=== PATIENT | female | born 1945 | race Caucasian/White ===

== ENCOUNTER 2020-01-22 09:02 | Outpatient (CLI) | payer MEDICARE, SELFPAY ==
--- NOTE | ~2020-01-22 | MM_ITS ---
EXAMINATION: MM screening claudio BI w thai HISTORY: Screening TECHNIQUE: Craniocaudal and mediolateral oblique 3-D tomosynthesis images were obtained and synthetic 2-D images were generated. CAD analysis was submitted and interpreted. COMPARISON: Comparison to multiple prior studies sequentially, with oldest reviewed study dated 11/10. BREAST PARENCHYMAL COMPOSITION: There are scattered areas of fibroglandular density. FINDINGS: There is no evidence of suspicious mass, calcification, or architectural distortion to sugg est malignancy in either breast. There has been no suspicious interval change. IMPRESSION: 1. No mammographic evidence of malignancy. 2. Recommend routine screening mammography in one year. BI-RADS Category 1: Negative Reviewed, dictated and finalized at location A.
== END 2020-01-22 09:03 | disposition home or self-care (01) ==
LOC: ANHIMG 09:05
PROVIDERS: PCP Internal Medicine; Visit Provider Internal Medicine Cardiovascular Disease
DX: Z12.31 Encounter for screening mammogram for malignant neoplasm of breast (principal)
CPT/HCPCS: 77063; 77067

== ENCOUNTER 2020-01-23 08:07 | Outpatient (CLI) | payer MEDICARE, SELFPAY ==
--- NOTE | ~2020-01-23 | US_ITS ---
EXAMINATION: US art doppler w press LE BI DATE: 01/23/2020 08:51 INDICATION: Bilateral claudication. TECHNIQUE: Segmental pressures and plethysmographic and Doppler waveforms of the brachial and lower e xtremity arteries were obtained. COMPARISON: CTA abdomen and pelvis 09/03/2018 FINDINGS: Right and left brachial artery pressures of 133 mm Hg and 143 mm Hg, respectively, are concordant (no rmal difference <= 30 mmHg). The right high-thigh pressure index is 1.17 (normal > 1.2). The right ankle-brachial index (WEN) is 0 .99 (normal >= 0.9-1.0). The right great toe-brachial index (TBI) is 0.70 (normal >= 0.65). The right lower extremity segmental pressure gradients are normal (normal gradients <= 20-30 mmHg between isela cent levels on the same leg or the same levels on the two legs). Arterial Doppler waveforms are bipha sic from common femoral artery to the ankle. The left high-thigh pressure index is 1.10. The left WEN is 1.03. The left TBI is 0.74. The left lowe r extremity segmental pressure gradients are normal. Arterial Doppler waveforms are biphasic from com mon femoral artery to the ankle. IMPRESSION: 1. No significant arterial occlusive disease. Reviewed, dictated and finalized at location A.
== END 2020-01-23 08:08 | disposition home or self-care (01) ==
PROVIDERS: PCP Internal Medicine; Visit Provider Podiatrist Foot & Ankle Surgery
DX: M79.672 Pain in left foot (principal); M79.671 Pain in right foot; I73.9 Peripheral vascular disease, unspecified
CPT/HCPCS: 93923

== ENCOUNTER 2020-03-23 00:28 | Outpatient (CLI) | payer MEDICARE, SELFPAY ==
[2020-03-23 20:04] LABS: SARS-CoV-2 RNA PCR Negative
== END 2020-03-23 00:29 | disposition home or self-care (01) ==
LOC: ANHCOVIDDT 00:28
PROVIDERS: PCP Internal Medicine; Visit Provider Internal Medicine Gastroenterology
DX: Z01.812 Encounter for preprocedural laboratory examination (principal); Z20.828 Contact with and (suspected) exposure to other viral communicable diseases
CPT/HCPCS: 87635; C9803; U0003

== ENCOUNTER 2020-03-25 01:00 | Day surgery (SDC) | payer MEDICARE, SELFPAY ==
[2020-03-17 14:46] VITALS: BMI 19.2
[2020-03-25 08:54] VITALS: BP 165/100; PULSE 73; RESP 18; TEMP 36.3; O2SAT 100; BMI 19.8
--- NOTE | 2020-03-25 09:09 | PM.HPGS ---
History of Present Illness History of Present Illness Consent: Risks, benefits, and alternatives have been discussed and questions answered. Patient agrees to proceed with procedure. Chief complaint: Neoplasm Screening Narrative: Clau Lebron is a 74 year old W female referred for screening colonoscopy. Patient states she had a colonoscopy approximately 10 years ago which was normal. No known family history of colon polyps or colon cancer. History was somewhat difficult patient is deaf. She states that many years ago she had a stent placed mesenteric vessel to reduce her blood pressure. Patient is on Eliquis secondary to history of a CVA. She did stop this several days ago. [facility] Past Medical History Medical History Anxiety Depression Hepatitis Stroke Surgical History Surgical History History of angioplasty Social History Social History Smoking packs per day: 0.25 Smoking cigarettes per day: 5.0 Years smoked: 20 Smoking pack-years: 5.00 Smoking status: Light tobacco smoker Tobacco type: cigarettes Second hand tobacco smoke exposure: No Smoking end date: 07/02/1968 Alcohol intake: current Drinks per week: 2 Substance use: never Substance use type: does not use Living arrangements: alone Spiritual care concerns: No Meds Home Medications and Allergies Home Medications Medication Instructions Recorded Confirmed Type amlodipine 5 mg PO DAILY 03/15/20 03/15/20 History apixaban [Eliquis] 5 mg PO BID 03/15/20 03/17/20 History atorvastatin 10 mg PO DAILY 03/15/20 03/15/20 History captopril 100 mg PO BID 03/15/20 03/17/20 History metoprolol succinate 100 mg PO DAILY 03/15/20 03/15/20 History Allergies Allergy/AdvReac Type Severity Reaction Status Date / Time No Known Allergies Allergy Unknown Verified 03/25/20 08:53 Vital Signs Vital Signs - 24 hr 03/25/20 08:54 Temperature 36.3 C L Pulse Rate 73 Respiratory Rate 18 Blood Pressure 165/100 H Pulse Oximetry 100 Exam Const: Orientation/consciousness: patient oriented x3 Resp: Auscultation: clear to auscultation bilaterally Cardio: Rate: regular rate Rhythm: regular rhythm Heart sounds: no murmurs GI: GI Palp: Yes Soft to palpation, No Tenderness to palpation present (GI), Yes No hepatosplenomegaly present and No Palpable mass present Auscultation: normal bowel sounds Neuro: General: patient oriented x3 and no focal motor deficits Extrem: General: no pedal edema Assessment and Plan Additional Plan Screening colonoscopy in average risk patient
[2020-03-25] MEDS: LACTATED RINGERS 1,000 ML 150 ML IV CONT (09:25)
--- NOTE | 2020-03-25 09:26 | SUR.PREOP ---
blood pressure 165/100. Dr. Alvarez aware. No new orders.
--- NOTE | 2020-03-25 09:53 | WPDANESEPPF ---
Anes - Initial Pre Proc Eval Procedure: Operation Date: 03/25/20 09:30 Proposed Procedures p Screening Colonoscopy - Robert Villafana MD Date/Time: 03/25/20 09:53 Surgeon: Robert Villafana MD Pre Op Diagnosis: Neoplasm Screening Patient Data Age: 74 Gender: F Height: 5 ft 4 in Weight: 52.5 kg Last Vital Signs Temp 97.4 F L 03/25/20 08:54 Pulse 73 03/25/20 08:54 Resp 18 03/25/20 08:54 BP 165/100 H 03/25/20 08:54 Pulse Ox 100 03/25/20 08:54 Allergies Allergy/AdvReac Type Severity Reaction Status Date / Time No Known Allergies Allergy Unknown Verified 03/25/20 08:53 Home Medications Medication Instructions Recorded Confirmed Type amlodipine 5 mg PO DAILY 03/15/20 03/15/20 History apixaban [Eliquis] 5 mg PO BID 03/15/20 03/17/20 History atorvastatin 10 mg PO DAILY 03/15/20 03/15/20 History captopril 100 mg PO BID 03/15/20 03/17/20 History metoprolol succinate 100 mg PO DAILY 03/15/20 03/15/20 History Patient hx anesthesia problems: none Family hx anesthesia problems: none PMFSH Past Medical History Medical History Anxiety Depression Hepatitis Stroke Surgical History Surgical History History of angioplasty Social History Social History Smoking packs per day: 0.25 Smoking cigarettes per day: 5.0 Years smoked: 20 Smoking pack-years: 5.00 Smoking status: Light tobacco smoker Tobacco type: cigarettes Second hand tobacco smoke exposure: No Smoking end date: 07/02/1968 Alcohol intake: current Drinks per week: 2 Substance use: never Substance use type: does not use Living arrangements: alone Spiritual care concerns: No Anes - Eval Final PreProcedure Day of Procedure 03/25/20 09:53 Patient weight: normal Heart: irregular rhythm Lungs: clear to auscultation Airway: Mallampati scale class II Neurological: alert and oriented Last oral intake: >/= 8 hours ASA classification: III Emergent: no Anesthetic plan: proceed Anesthesia type and monitoring: general GIVS and standard monitoring Informed Consent: The patient's anesthetic plan and its attendant risks and benefits were discussed with the patient/family/POA. Questions were solicited and answers provided to the satisfaction of the patient/family/POA.
[2020-03-25 10:15] VITALS: BP 128/86; PULSE 117; RESP 20; O2SAT 97
[2020-03-25 10:25] VITALS: BP 110/69; PULSE 121; RESP 24; O2SAT 98
[2020-03-25 10:35] VITALS: BP 119/72; PULSE 112; RESP 26; O2SAT 99
== END 2020-03-25 11:03 | disposition home or self-care (01) ==
PROVIDERS: PCP Internal Medicine; Visit Provider Internal Medicine Gastroenterology
PROC: 0DJD8ZZ Inspection of Lower Intestinal Tract, Via Natural or Artificial Opening Endoscopic (ICD-10-PCS; CPT 45378; principal; 2020-03-25 09:30)
DX: Z12.11 Encounter for screening for malignant neoplasm of colon (principal); K57.30 Diverticulosis of large intestine without perforation or abscess without bleeding; K64.8 Other hemorrhoids; K64.4 Residual hemorrhoidal skin tags; F41.8 Other specified anxiety disorders; Z86.19 Personal history of other infectious and parasitic diseases; Z86.73 Personal history of transient ischemic attack (TIA), and cerebral infarction without residual deficits; Z87.891 Personal history of nicotine dependence; Z79.01 Long term (current) use of anticoagulants
CPT/HCPCS: G0121; J2704; J7120

== ENCOUNTER 2020-07-15 10:07 | Emergency (ER) | payer MEDICARE, SELFPAY ==
[2020-07-15 10:20] VITALS: BP 145/88; PULSE 120; RESP 18; TEMP 36.6; O2SAT 99
--- NOTE | 2020-07-15 10:36 | ED.ANIMALBIT ---
HPI - Animal Bite General Chief Complaint: Animal Bite Stated Complaint: Dog Bite Time Seen by Provider: 07/15/20 10:30 Source: patient Mode of arrival: ambulatory Limitations: no limitations History of Present Illness HPI narrative: Clau Lebron is a 75 yo female with a PMH of a fib, HTN, high cholesterol, chronic anticoagulation, comes to [facility] with a small dog bite to the left lateral wrist that occurred Sunday while trying to give her dog pill. She said her dog didn't mean to bite her but she had her arm holding the dog while trying to force the pill. Started to get red the next day even after being wash, she has full range of motion and pain only when she tries to flex wrist, at which point it is 3 out of 10 Patient is extremely hard of hearing Related Data Home Medications Medication Instructions Recorded Confirmed Eliquis 5 mg PO BID 03/15/20 07/15/20 amlodipine 5 mg PO DAILY 03/15/20 07/15/20 atorvastatin 10 mg PO DAILY 03/15/20 07/15/20 captopril 100 mg PO BID 03/15/20 07/15/20 metoprolol succinate 100 mg PO DAILY 03/15/20 07/15/20 Allergies Allergy/AdvReac Type Severity Reaction Status Date / Time No Known Allergies Allergy Unknown Verified 07/15/20 10:32 Review of Systems Review of Systems: Narrative: CONSTITUTIONAL: Denies fever, chills, sweats. EYES: Denies visual changes, redness, discharge. ENT: Denies rhinorrhea, congestion, sore throat, otalgia. CARDIOVASCULAR: Denies chest pain, palpitations, edema. RESPIRATORY: Denies dyspnea, wheezing, cough GASTROINTESTINAL: Denies abdominal pain, nausea, vomiting, diarrhea. GENITOURINARY: Denies dysuria, hematuria, abnormal discharge SKIN: Denies rash or itching. Bite to right wrist NEUROLOGIC: Denies numbness, or focal weakness. PSYCHIATRIC: Denies anxiety or depression. [facility] Past Medical History Medical History (Updated 07/15/20 @ 10:52 by Aye Bermudez CNP) Anxiety Depression Hepatitis Stroke Surgical History Surgical History History of angioplasty Family History Family History (Updated 07/15/20 @ 10:47 by Aye Bermudez CNP) Other No acute medical problems Social History Social History (Updated 07/15/20 @ 10:46 by Aye Bermduez CNP) Smoking packs per day: 0.25 Smoking cigarettes per day: 5.0 Years smoked: 20 Smoking pack-years: 5.00 Smoking status: Former smoker Tobacco type: cigarettes Second hand tobacco smoke exposure: No Smoking end date: 07/02/1968 Alcohol intake: current Drinks per week: 2 Substance use: never Substance use type: does not use Gender identity (if verbalized by the patient): Female Spiritual care concerns: No Comments At time of signature, I agree with nursing past medical, surgical, social and family history. There is no relevant family history pertinent to the presenting complaint. Exam Narrative: Exam Narrative: GENERAL: This is a well-nourished, well-developed patient, in mild distress. HEAD: normocephalic, atraumatic. EYES: PERRL. Sclera clear/white. Vision is grossly intact. EARS: External ears normal. Hearing grossly intact. NOSE: External nose normal without nasal discharge, nares without redness, no rhinorrhea. THROAT: Mucous membranes moist, NECK: Neck supple, CARDIOVASCULAR: Regularly irregular rate and rhythm without murmurs, gallops, or rubs. RESPIRATORY: Clear to auscultation. Breath sounds equal bilaterally. No wheezes, rales, or rhonchi. GASTROINTESTINAL: Abdomen soft, SKIN: warm, intact with no suspicious lesions or rash, small laceration, scab, redness on lateral wrist, good range of motion good finger opposition pain with flex his wrist upward NEURO: awake, alert, and oriented to person, place and time. There were no obvious focal neurologic abnormalities. Steady gait EXTREMITIES: Normal range of motion. BACK: Nontender without deformity Course Course Emergency Course: Danisha
== END 2020-07-15 10:54 | disposition home or self-care (01) ==
PROVIDERS: Emergency Provider Nurse Practitioner
DX: S61.511A Laceration without foreign body of right wrist, initial encounter (principal); W54.0XXA Bitten by dog, initial encounter; Z86.73 Personal history of transient ischemic attack (TIA), and cerebral infarction without residual deficits; I48.91 Unspecified atrial fibrillation; I10 Essential (primary) hypertension; E78.00 Pure hypercholesterolemia, unspecified; Z79.01 Long term (current) use of anticoagulants
CPT/HCPCS: 99213; G0463

== ENCOUNTER 2020-11-23 07:00 | Emergency (ER) | payer MEDICARE, SELFPAY ==
--- NOTE | ~2020-11-23 | CT_ITS ---
EXAMINATION: CT brain wo con INDICATION: Head injury COMPARISON: 02/01/2015 TECHNIQUE: Standard unenhanced head CT. The dose-length product (DLP) was 529.67 mGy-cm. The mA was a djusted according to patient size. Iterative reconstruction technique was employed. FINDINGS: There is a large right-sided scalp hematoma. A 7 mm punctate hyperdensity is seen in the ri ght frontal lobe on image 37. A 3 mm hyperdensity of the right frontal lobe as seen on image 36. Ther e are no extra-axial fluid collections. No evidence of mass lesion. No evidence of acute infarction. An area of prior infarction is noted in the left frontal lobe. There is mild periventricular and subc ortical hypodensity probably related to small vessel ischemic disease. There is mild prominence of th e sulci and ventricles related to cerebral atrophy. Intracranial calcified cerebral atherosclerosis i s noted. There are no extra-axial collections. There is no mass effect or midline shift. Changes in t he globes are likely from ocular lens surgery. There is mild mucosal thickening of the paranasal sin uses. IMPRESSION: 1. Intraparenchymal contusions of the right frontal lobe. 2. Age related findings. These findings were discussed with Dr. Carolina Way MD in the Emergency Department at 0818 hours on 11/23/2020. Reviewed, dictated and finalized at location A. IMPRESSION: 1. Intraparenchymal contusions of the right frontal lobe. 2. Age related findings. These findings were discussed with Dr. Carolina Way MD in the Emergency Depar tment at 0818 hours on 11/23/2020.
--- NOTE | ~2020-11-23 | XR_ITS ---
EXAMINATION: XR chest 1V portable DATE: 11/23/2020 09:27 INDICATION: Left chest pain. Fall. TECHNIQUE: A single frontal view of the chest was obtained. COMPARISON: Chest single view 05/17/2016 FINDINGS: There are airspace opacities in right mid and lower lung zones and left lower lung zone. No pleural effusion or pneumothorax. Cardiomegaly is noted. IMPRESSION: 1. Worsened airspace opacities in right mid and lower lung zones and left lower lung zone, consistent with atelectasis versus pneumonia. 2. Cardiomegaly. Reviewed, dictated and finalized at location B.
--- NOTE | ~2020-11-23 | XR_ITS ---
EXAMINATION: XR shoulder LT min 2V INDICATION: Left shoulder pain TECHNIQUE: Four views of the left shoulder are submitted. COMPARISON: 08/03/2015 FINDINGS: Normal alignment. No fracture. There is mild osteoarthritis of the glenohumeral and acromio clavicular joints. Soft tissues are unremarkable. IMPRESSION: 1. No acute osseous abnormality. Reviewed, dictated and finalized at location A.
--- NOTE | ~2020-11-23 | XR_ITS ---
EXAMINATION: XR hand LT min 3V INDICATION: Left hand pain TECHNIQUE: Three views of the left hand are obtained COMPARISON: None available FINDINGS: There is no fracture, dislocation, or subluxation. 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 The soft tissues are unremark able. 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 IMPRESSION: 1. No acute osseous abnormality. Reviewed, dictated and finalized at location A.
--- NOTE | ~2020-11-23 | CT_ITS ---
EXAMINATION: CT cervical spine wo con DATE: 11/23/2020 08:01 INDICATION: Head injury TECHNIQUE: Computed tomography (CT) of the cervical spine was performed without intravenous contrast. The dose-length product (DLP) was 124.83 mGy-cm. Automated exposure control and iterative reconstruc tion technique were employed. COMPARISON: 07/29/2018 FINDINGS: There is an acute fracture involving the anterior aspect of the left C2 foramen transversar ium. A fracture of the left C7 superior articular facet is also noted. There are 2 mm of anterolisthe sis of C2 on C3 and 2 mm of retrolisthesis of C4 on C5. There is severe loss of intervertebral disc s pace height at C3-4, C4-5, and C5-6. The vertebral body heights are maintained. The prevertebral soft tissues are normal. The odontoid is intact. IMPRESSION: 1. Acute fractures of the left C2 foramen transversarium and left C7 superior articular facet. These findings were discussed with Dr. Carolina Way MD in the Emergency Department at 0818 hours on 11/23/2020. Reviewed, dictated and finalized at location A. IMPRESSION: 1. Acute fractures of the left C2 foramen transversarium and left C7 superior a rticular facet. These findings were discussed with Dr. Carolina Way MD in the Emergency Depar tment at 0818 hours on 11/23/2020.
[2020-11-23 07:00] VITALS: BP 119/117; PULSE 114; RESP 15; TEMP 36.8; O2SAT 99
[2020-11-23 07:19] VITALS: BP 177/107
--- NOTE | 2020-11-23 07:44 | ED.GENADULT ---
HPI - General Adult General Chief complaint: Extremity Injury, Upper Stated complaint: fall Time Seen by Provider: 11/23/20 07:06 Source: patient History of Present Illness HPI narrative: Patient is a 75 y/o female complaining of falling down some steps after she tried to walk downstairs without turning on the lights. This happened approximately 2 hours ago. She complains of left neck pain, shoulder pain and hand pain. She also has some headache and left upper chest pain. She denies any back pain or abdominal pain. She has no LOC. She was able to get up without assistance. Related Data Home Medications Medication Instructions Recorded Confirmed Eliquis 5 mg PO BID 03/15/20 07/15/20 amlodipine 5 mg PO DAILY 03/15/20 07/15/20 atorvastatin 10 mg PO DAILY 03/15/20 07/15/20 captopril 100 mg PO BID 03/15/20 07/15/20 metoprolol succinate 100 mg PO DAILY 03/15/20 07/15/20 Allergies Allergy/AdvReac Type Severity Reaction Status Date / Time No Known Allergies Allergy Unknown Verified 07/15/20 10:32 Review of Systems Constitutional: Constitutional: Denies chills, Denies fever(s), Reports headache(s) and Denies weakness Eyes: Eyes: Denies blurry vision ENT: Reports headache(s) and Denies neck pain Cardiovascular: Cardiovascular: Reports chest pain and Denies dyspnea Respiratory: Respiratory: Denies cough and Denies dyspnea Gastrointestinal: Gastrointestinal: Denies abdominal pain, Denies diarrhea, Denies nausea and Denies vomiting Genitourinary: Genitourinary: Denies hematuria and Denies dysuria Musculoskeletal: Musculoskeletal: Denies back pain, Reports arthralgias (left shoulder pain), Reports neck pain and Reports other (left hand pain) Neurologic: Reports headache(s) and Reports weakness PMFSH Past Medical History Medical History (Updated 11/23/20 @ 09:[address] MD) Anxiety Depression Hepatitis Stroke Surgical History Surgical History History of angioplasty Family History Family History Other No acute medical problems Social History Social History Smoking packs per day: 0.25 Smoking cigarettes per day: 5.0 Years smoked: 20 Smoking pack-years: 5.00 Smoking status: Former smoker Tobacco type: cigarettes Second hand tobacco smoke exposure: No Smoking end date: 07/02/1968 Alcohol intake: current Drinks per week: 2 Substance use: never Substance use type: does not use Gender identity (if verbalized by the patient): Female Spiritual care concerns: No Exam Const: General: no acute distress and well developed Orientation/consciousness: oriented to person, oriented to place, oriented to time and patient oriented x3 HENMT: Head: normocephalic Ears: external ears normal General nose exam: Normal external nose present Eyes: General: appearance normal, both eyes and all related structures Conjunctivae: conjunctivae normal Neck: Neck: normal visual inspection and full ROM Chest: Chest palpation & inspection: normal inspection of the chest and no tenderness Resp: Effort & Inspection: normal respiratory effort Auscultation: clear to auscultation bilaterally Cardio: Rate: tachycardic Rhythm: abnormal rhythm irregularly irregular GI: GI Palp: No abdominal tenderness and Yes Soft to palpation Skin: General skin exam: normal color and turgor normal Neuro: General: oriented to person, oriented to place, oriented to time, patient oriented x3 and other (GCS 15) Cranial nerves: Yes hard of hearing Cognition (Neuro): normal cognition Speech: normal speech Motor exam (neuro): 5/5 motor strength present throughout Sensory Exam: normal sensation Extrem: General: normal to inspection, full ROM and no pedal edema Psych: Appearance: grossly normal Mental Status: mental status grossly normal Affect: normal aff
[2020-11-23 08:27] LABS: Basophils Absolute Auto 0.1 K/mm3 (0.0-0.1); Basophils Percent Auto 0.4 % (0.2-1.2); Eosinophils Percent Auto 0.1 % (0-4.4); Hematocrit 48.6 % (37.0-47.0); Hemoglobin 16.4 g/dL (12.0-15.0); Immature Granulocyte Percent A 0.6 % (0-0.5); Lymphocytes Absolute Auto 0.85 K/mm3 (0.9-3.2); Lymphocytes Percent Auto 5.1 % (18.3-44.2); Mean Corpuscular HGB Conc 33.7 g/dl (32-36); Mean Corpuscular Hemoglobin 29.6 pg (26-34); Mean Corpuscular Volume 87.7 fl (80-100); Mean Platelet Volume 10.7 fl (7.4-10.4); Monocytes Absolute Auto 0.7 K/mm3 (0.1-0.6); Monocytes Percent Auto 3.9 % (2.6-8.5); Neutrophils Absolute Auto 15.1 K/mm3 (1.3-6.7); Neutrophils Percent Auto 89.9 % (45.5-73.1); Platelet Count Result 233 k/mm3 (150-375); Red Blood Count 5.54 M/mm3 (4.2-5.4); Red Cell Distribution Width 13.5 % (11.5-14.5); White Blood Count 16.8 K/mm3 (4.5-10.0)
--- NOTE | 2020-11-23 08:30 | PC.NURSE ---
Asked Dr. Way about pain medication for patient. Orders received to administer 2mg of morphine IVP.
[2020-11-23] MEDS: MORPHINE SULFATE (*CRX) 2 MG/ML INJ IV PUSH (08:36)
[2020-11-23 08:39] LABS: INR 1.4; Prothrombin Time 17.4 Seconds (11.1-14.7)
[2020-11-23 08:40] LABS: Partial Thromboplastin Time 36.5 SECONDS (22.3-36.8)
[2020-11-23 08:42] LABS: Anion Gap 10 mmol/L (8-16); Blood Urea Nitrogen 27 mg/dL (7-17); Carbon Dioxide 25 mmol/L (22-30); Chloride 105 mmol/L (98-107); Estimated CRCL calculation 28 ml/min; Estimated Glomerular Filt Rate 44; Glucose 141 mg/dL (65-105); Potassium 4.5 mmol/L (3.4-5.0); Sodium 140 mmol/L (137-145)
--- NOTE | 2020-11-23 08:42 | ECG_ITS ---
Measurements Intervals [place] Rate: 134 P: GA: 0 QRS: 129 QRSD: 118 T: -28 QT: 306 QTc: 458 Interpretive Statements ATRIAL FIBRILLATION WITH RAPID VENTRICULAR RESPONSE RIGHT AXIS DEVIATION RIGHT BUNDLE BRANCH BLOCK CONSIDER HIGH LATERAL INFARCT, AGE INDETERMINATE ST-T WAVE ABNORMALITY IN INFERIOR LEADS- CONSIDER ISCHEMIA BASELINE ARTIFACT- I, II, III ABNORMAL ECG Electronically Signed On 11-23-2020 8:58:55 CDT by Flaco Castañeda D.O.
[2020-11-23] MEDS: dilTIAZem HCl INJ 25 MG/5 ML VIAL 10 MG IV PUSH (09:08)
[2020-11-23 09:12] VITALS: BP 94/79; PULSE 87
[2020-11-23 09:16] VITALS: BP 94/79; PULSE 126; RESP 24; O2SAT 95
[2020-11-23 09:37] VITALS: BP 149/72; PULSE 110; PULSE 113; RESP 21; RESP 22; O2SAT 95; O2SAT 97
== END 2020-11-23 09:52 | disposition short-term general hospital (02) ==
PROVIDERS: Emergency Provider Emergency Medicine
DX: S06.340A Traumatic hemorrhage of right cerebrum without loss of consciousness, initial encounter (principal); S12.190A Other displaced fracture of second cervical vertebra, initial encounter for closed fracture; S12.690A Other displaced fracture of seventh cervical vertebra, initial encounter for closed fracture; I48.91 Unspecified atrial fibrillation; Z86.73 Personal history of transient ischemic attack (TIA), and cerebral infarction without residual deficits; Z98.62 Peripheral vascular angioplasty status; Z87.891 Personal history of nicotine dependence; Z79.01 Long term (current) use of anticoagulants; I45.10 Unspecified right bundle-branch block; R94.31 Abnormal electrocardiogram [ECG] [EKG]; I51.7 Cardiomegaly; R91.8 Other nonspecific abnormal finding of lung field; W10.9XXA Fall (on) (from) unspecified stairs and steps, initial encounter
CPT/HCPCS: 36415; 70450; 71045; 72125; 73030; 73130; 80048; 85025; 85610; 85730; 93005; 96365; 96375; 99291; C9132; J2270

== ENCOUNTER 2021-06-13 13:34 | Inpatient (IN) | payer MEDICARE, SELFPAY ==
--- NOTE | ~2021-06-13 | XR_ITS ---
EXAMINATION: XR chest 1V portable DATE: 06/14/2021 00:05 INDICATION: Tachycardia. TECHNIQUE: A single frontal view of the chest was obtained. COMPARISON: Chest single view 11/23/2020, CT abdomen and pelvis 09/03/2018 FINDINGS: There is a diffuse interstitial pattern, consistent with mild pulmonary edema. No pleural e ffusion or pneumothorax. Cardiomegaly is noted. IMPRESSION: 1. Mild pulmonary edema. 2. Cardiomegaly. Reviewed, dictated and finalized at location A. O LAB ANALYST
--- NOTE | ~2021-06-13 | XR_ITS ---
EXAMINATION: XR chest 1V portable INDICATION: Shortness of breath TECHNIQUE: Portable AP chest at 0535 hours COMPARISON: 06/13/2021 FINDINGS: Cardiomegaly is noted. A mild diffuse interstitial pattern persists. The lungs are free of focal airspace opacities. There is no pleural effusion or pneumothorax. IMPRESSION: 1. Cardiomegaly with mild pulmonary edema. Reviewed, dictated and finalized at location A. LY CHAIN ASSISTANT
--- NOTE | ~2021-06-13 | US_ITS ---
EXAMINATION: US renal BI DATE: 06/14/2021 12:06 INDICATION: Acute renal insufficiency TECHNIQUE: Multiple ultrasound grayscale images of the kidneys were obtained. COMPARISON: CT abdomen and pelvis dated 09/03/2018 FINDINGS: The right kidney measures 9.4 x 3.8 x 3.9 cm. The left kidney measures 7.2 x 4.2 x 4.6 cm. Exclusive of a 7.4 cm anechoic cyst arising from the upper pole. The kidneys demonstrate normal echogenicity. T here is no hydronephrosis in either kidney. No stones identified. The bladder is normal with bilater al ureteral jets visualized on color Doppler. IMPRESSION: 1. 7.4 cm left renal cyst. Otherwise normal kidneys without hydronephrosis. Reviewed, dictated and finalized at location A. COVERER AND INSULATOR
--- NOTE | ~2021-06-13 | CT_ITS ---
EXAMINATION: CT brain wo con DATE: 06/15/2021 13:41 INDICATION: Confusion. TECHNIQUE: Computed tomography (CT) of the head was performed without intravenous contrast. The mA wa s adjusted according to patient size. Iterative reconstruction technique was employed. The dose-lengt h product was 605.33 mGy-cm. COMPARISON: Head CT 11/23/2020 FINDINGS: There are scattered areas of low attenuation in the cerebral white matter. There is an old infarct in left frontal lobe. There are old infarcts in the bilateral basal ganglia, left thalamus, a nd gaurav. There is a 7 mm hyperdense mass in right cerebellum. There is no acute ischemic infarct. The ventricles are normal in size. There are likely changes of ocular lens replacement surgeries. There is mild mucosal thickening in the paranasal sinuses. The mastoid air cells are normal. IMPRESSION: 1. 7 mm hyperdense mass in right cerebellum, new from 11/23/2020. The differential diagnosis includes acute intraparenchymal hematoma and metastatic disease. I called this result to Maurice Estrada. 2. Old infarcts in the left frontal lobe, lateral basal ganglia, left thalamus, and gaurav. 3. Extensive nonspecific cerebral white matter disease, which likely represents chronic small vessel ischemic disease. Reviewed, dictated and finalized at location A. BENDER IMPRESSION: 1. 7 mm hyperdense mass in right cerebellum, new from 11/23/2020. The different ial diagnosis includes acute intraparenchymal hematoma and metastatic disease. I called this result to Maurice Estrada. 2. Old infarcts in the left frontal lobe, lateral basal ganglia, left thalamus, and gaurav. 3. Extensive nonspecific cerebral white matter disease, which likely represents chronic small vessel ischemic disease.
--- NOTE | ~2021-06-13 | NM_ITS ---
EXAMINATION: NM pulmonary perfusion EXAM DATE: 06/14/2021 09:08 INDICATION: COVID+, tachycardia. TECHNIQUE: A perfusion lung scan was performed. The patient was injected with 5.4 mCi technetium 99 m MAA and imaged. The Modified PIOPED 2 criteria used for interpretation of this perfusion only study , with 3 possible interpretations (PE present, PE absent, nondiagnostic) based on findings present, a nd correlated with a recent chest x-ray. More specifically, a high probability scan will be interpret ed as pulmonary embolism present. A normal or near normal scan will be interpreted as pulmonary embol ism absent. And finally an intermediate probability scan will be interpreted as nondiagnostic. Corre lation is made to chest x-ray from yesterday. FINDINGS: There is cardiomegaly. Minimally heterogeneous perfusion without segmental defects, near no rmal perfusion. IMPRESSION: PE absent. Reviewed, dictated and finalized at location D. CATED LOCAL TRUCK DRIVER IMPRESSION: PE absent.
[2021-06-13 15:09] VITALS: BP 122/93; PULSE 57; RESP 18; TEMP 35.7; O2SAT 100
[2021-06-13 16:09] VITALS: BP 147/108; PULSE 104; RESP 16; TEMP 37; O2SAT 100
[2021-06-13 18:48] VITALS: BP 136/95; PULSE 97; RESP 20; TEMP 36.7; O2SAT 97
[2021-06-13 20:51] VITALS: BP 145/117; PULSE 122; RESP 22; O2SAT 97
[2021-06-13 20:52] VITALS: RESP 22; O2SAT 97
[2021-06-13] MEDS: SODIUM CHLORIDE 0.9% IV 1,000 ML 999 ML IV CONT (21:16)
--- NOTE | 2021-06-13 21:19 | ED.GENADULT ---
HPI - General Adult General Chief complaint: Unspecified Stated complaint: Covid + today,lethargy Time Seen by Provider: 06/13/21 20:56 Source: patient History of Present Illness HPI narrative: Patient is referred from nursing facility for lethargy. She was diagnosed with Covid today at an urgent care. Patient reports over the past couple days she has had nausea vomiting and diarrhea as well as subjective fevers. She was concerned she had appendicitis was evaluated in urgent care and tested positive for Covid. Patient reports she feels well today shortness of nausea and vomiting and diarrhea have resolved she denies any chest pain or shortness of breath denies any cough. Related Data Home Medications Medication Instructions Recorded Confirmed acetaminophen 325 mg tablet 325 mg PO Q6H PRN 12/31/20 12/31/20 trazodone 100 mg tablet 50 mg PO QHS PRN tablet 02/09/21 Allergies Allergy/AdvReac Type Severity Reaction Status Date / Time No Known Allergies Allergy Unknown Verified 06/13/21 20:55 Review of Systems Review of Systems: CONSTITUTIONAL: Denies fever, chills, or sweats. EYES: Denies visual changes, redness, or discharge. ENT: Denies rhinorrhea, congestion, sore throat, or otalgia. CARDIOVASCULAR: Denies chest pain, palpitations, or edema. RESPIRATORY: Denies cough or dyspnea. GASTROINTESTINAL: Denies abdominal pain, nausea, vomiting, or diarrhea. GENITOURINARY: Denies dysuria or hematuria. SKIN: Denies rash or itching. MUSCULOSKELETAL: Denies back pain, joint pain, or myalgia. NEUROLOGIC: Denies headache, numbness, dizziness, or weakness. PSYCHIATRIC: Denies anxiety or depression. All systems reviewed & are unremarkable except as noted in HPI and below PMFSH Past Medical History Medical History (Updated 06/14/21 @ 00:35 by Altaf Gaspar MD) Anxiety Depression Hepatitis Stroke Surgical History Surgical History History of angioplasty Family History Family History Other No acute medical problems Social History Social History Smoking packs per day: 0.25 Smoking cigarettes per day: 5.0 Years smoked: 20 Smoking pack-years: 5.00 Smoking status: Never smoker Tobacco type: cigarettes Second hand tobacco smoke exposure: No Smoking end date: 07/02/1968 Alcohol intake: current Drinks per week: 2 Substance use: never Substance use type: does not use Gender identity (if verbalized by the patient): Female Spiritual care concerns: No Exam Narrative: GENERAL: Well-appearing, well-nourished, and in no acute distress. HEAD: Normocephalic, atraumatic. EYES: PERRLA and EOMI. ENT: Nares clear, no rhinorrhea or epistaxis. Mucous membranes moist. NECK: Supple. No masses. No JVD CHEST: Clear to auscultation. No respiratory distress. No wheezes rales or rhonchi HEART: Regular tachycardia. No murmur heard. Normal peripheral pulses. ABDOMEN: Soft, nontender, nondistended, normal active bowel sounds. EXTREMITIES: Normal range of motion. No edema. SKIN: Warm, dry, no rash. NEURO: No focal deficits. Alert and oriented with tangential thoughts PSYCH: Normal mood and affect. Course Reevaluation(s) Reevaluation #1: Patient resting comfortably heart rate improved after diltiazem and fluids however increased after review of her work-up thus far. Given patient's elevation in creatinine recent diarrhea primary concern is for hypovolemia and dehydration. Given lab abnormalities she will be admitted for further management. Patient is comfortable with inpatient plan. Date: 06/14/21 Time: 00:30 Vital Signs Vital signs: Vital Signs Temperature 35.7 C L 06/13/21 15:09 Pulse Rate 57 L 06/13/21 15:09 Respiratory Rate 18 06/13/21 15:09 Blood Pressure 122/93 H 06/13/21 15:09 Pulse Oximetry 100 06/13/21 15:09
[2021-06-13 22:59] LABS: Basophils Percent Auto 0.2 % (0.2-1.2); Hemoglobin 16.6 g/dL (12.0-15.0); Immature Granulocyte Absolute 0.02 K/mm3 (0.00-0.031); Immature Granulocyte Percent A 0.2 % (0-0.5); Lymphocytes Absolute Auto 1.24 K/mm3 (0.9-3.2); Lymphocytes Percent Auto 15.5 % (18.3-44.2); Mean Corpuscular HGB Conc 33.2 g/dl (32-36); Mean Corpuscular Hemoglobin 29.8 pg (26-34); Mean Corpuscular Volume 89.8 fl (80-100); Mean Platelet Volume 11.3 fl (7.4-10.4); Monocytes Absolute Auto 0.9 K/mm3 (0.1-0.6); Neutrophils Absolute Auto 5.9 K/mm3 (1.3-6.7); Neutrophils Percent Auto 73.1 % (45.5-73.1); Platelet Count Result 197 k/mm3 (150-375); Red Blood Count 5.57 M/mm3 (4.2-5.4); Red Cell Distribution Width 13.7 % (11.5-14.5)
[2021-06-13] MEDS: dilTIAZem HCl INJ 25 MG/5 ML VIAL 10 MG IV PUSH (23:00)
[2021-06-13 23:03] VITALS: BP 146/82; PULSE 117; RESP 23; O2SAT 97
[2021-06-13 23:13] LABS: Alanine Aminotransferase 29 U/L (4-35); Albumin Level 4.2 g/dL (3.5-5.1); Alkaline Phosphatase 121 U/L (38-126); Anion Gap 14 mmol/L (8-16); Aspartate Amino Transferase 34 U/L (14-36); Bilirubin,Total 1.2 mg/dL (0.2-1.3); Blood Urea Nitrogen 47 mg/dL (7-17); Calcium 9.3 mg/dL (8.4-10.2); Carbon Dioxide 24 mmol/L (22-30); Chloride 100 mmol/L (98-107); Estimated CRCL calculation 14 ml/min; Estimated Glomerular Filt Rate 22; Glucose 94 mg/dL (65-110); Potassium 3.9 mmol/L (3.4-5.0); Sodium 138 mmol/L (137-145)
[2021-06-13 23:14] LABS: Lactic Acid Reflex 2.1 mmol/L (0.7-2.1)
--- NOTE | 2021-06-13 23:32 | PC.NURSE ---
tech in room attempting straight catheter.
[2021-06-14] VITALS (13 sets, daily range): BP systolic 113–172; BP diastolic 58–88; PULSE 95–136; RESP 16–27; TEMP 36.2–37.1; O2SAT 93–100; BMI 18.5
[2021-06-14] MEDS: SODIUM CHLORIDE 0.9% IV 500 ML 999 ML IV CONT (00:43)
--- NOTE | 2021-06-14 00:43 | PM.IMHP ---
H&P: HPI History of Present Illness Date/Time: 06/14/21 00:43 Chief Complaint: Altered mental status Narrative: This is a 76-year-old female with past medical history significant for stroke, atrial fibrillation, patient is a [facility] resident who was brought to the emergency room after staff concerns for the patient's altered mental status she had not been her usual today and for the past several days she to was having nausea vomiting and diarrhea and had a low pulse ox EMS was called and brought to our ED department for further evaluation. At the time of my visit patient was unable to give me any history she was very circumstantial. Most of the history has been obtained upon reviewing medical records and phone discussion with emergency room doctor. Preliminary workup was significant for chemistry panel with a BUN and creatinine of 47 and 2.2, a chest x-ray was clear and COVID-19 PCR is pending at this time. In emergency room patient went into atrial fibrillation with rapid ventricular response that responded to diltiazem bolus, she was also found to be having low saturations as well hand she was placed on supplemental oxygen by nasal cannula however in emergency room patient's oxygen on room air was high 90s to 100%. Decision has been made to admit patient for further evaluation management and treatment. Review of Systems Review of Systems: Patient was brought to the emergency room after she was noted to be altered not her usual [facility] staff is a raised concerns for her health. As per [facility] records patient had had few days of nausea vomiting and diarrhea. ROS unobtainable: Yes unobtainable due to medical condition (Patient has had a stroke patient with loss associations. No discomfort) PMFSH Past Medical History Medical History (Updated 06/14/21 @ 00:35 by Altaf Gaspar MD) Anxiety Depression Hepatitis Stroke Surgical History Surgical History History of angioplasty Family History Family History Other No acute medical problems Social History Social History Smoking packs per day: 0.25 Smoking cigarettes per day: 5.0 Years smoked: 20 Smoking pack-years: 5.00 Smoking status: Never smoker Tobacco type: cigarettes Second hand tobacco smoke exposure: No Smoking end date: 07/02/1968 Alcohol intake: current Drinks per week: 2 Substance use: never Substance use type: does not use Gender identity (if verbalized by the patient): Female Spiritual care concerns: No Meds Home Medications and Allergies Home Medications Medication Instructions Recorded Confirmed Type acetaminophen 325 mg tablet 325 mg PO Q6H PRN 12/31/20 12/31/20 History atorvastatin 10 mg tablet 10 mg PO DAILY #90 tablet 01/24/21 Rx captopril 100 mg tablet 100 mg PO BID #180 tablet 01/24/21 Rx diltiazem HCl 30 mg tablet 30 mg PO TID #270 tablet 01/24/21 Rx metoprolol tartrate 50 mg tablet 150 mg PO Q12H #540 tablet 01/24/21 Rx trazodone 100 mg tablet 50 mg PO QHS PRN tablet 02/09/21 History guaifenesin 100 mg/5 mL oral liquid 200 mg PO Q4H PRN #473 ml 04/21/21 Rx cholecalciferol (vitamin D3) 250 250 mcg PO DAILY #30 cap 05/16/21 Rx mcg (10,000 unit) capsule melatonin 3 mg tablet 3 mg PO QHS #30 tablet 06/10/21 Rx Allergies Allergy/AdvReac Type Severity Reaction Status Date / Time No Known Allergies Allergy Unknown Verified 06/13/21 20:55 Vital Signs Vital Signs - 24 hr 06/13/21 15:09 06/13/21 16:09 06/13/21 18:48 Temperature 96.3 F L 98.6 F 98.0 F Pulse Rate 57 L 104 H 97 Respiratory Rate 18 16 20 Blood Pressure 122/93 H 147/108 H 136/95 H Pulse Oximetry 100 100 97 06/13/21 20:51 06/13/21 20:52 06/13/21 23:03 Temperature Pulse Rate 122 H 117 H Respiratory Rate 22 H 22 H 23 H Blood Pressure 145/117 H 146/82 H
--- NOTE | 2021-06-14 00:49 | PC.NURSE ---
no urine output w/ straight catheter.
[2021-06-14 01:57] LABS: Reflex Lactic Acid Yes or No Add Lactic
[2021-06-14 02:47] LABS: Creatinine Urine 154.6 mg/dL
[2021-06-14 02:52] LABS: Sodium Urine Random 69 meq/L
[2021-06-14 02:53] LABS: Add Urine Microscopic? YES; Appearance Urine Cloudy (Clear); Bacteria Urine Trace /hpf; Bilirubin Urine Negative (Negative); Blood Urine 3+ (Negative); Color Urine Yellow (Yellow); Glucose Urine UA 1+ mg/dL (Negative); Hyaline Casts Urine 30-49 /lpf; Ketones Urine Trace mg/dL (Negative); Leukocyte Esterase Ur 2+ LEU/UL (Negative); Mucus Urine Rare /lpf; Nitrate Urine Negative (Negative); Protein Urine 2+ mg/dL (Negative); RBC Urine >75 /hpf (0-2); Specific Grav Ur 1.018 (1.001-1.035); Squamous Epithelial Cell Urine Occasional /hpf (Few); Urobilinogen Urine Negative mg/dL (<2.0); WBC Urine 31-50 /hpf
[2021-06-14 02:58] LABS: Lactic Acid 1.4 mmol/L (0.7-2.1)
[2021-06-14] MEDS: dilTIAZem HCl INJ 25 MG/5 ML VIAL 10 MG IV PUSH (03:14)
[2021-06-14] MEDS: SODIUM CHLORIDE 0.9% IV 1,000 ML 125 ML IV CONT (05:23)
[2021-06-14 08:08] LABS: Basophils Percent Auto 0.5 % (0.2-1.2); Hematocrit 43.1 % (37.0-47.0); Immature Granulocyte Absolute 0.03 K/mm3 (0.00-0.031); Immature Granulocyte Percent A 0.4 % (0-0.5); Mean Corpuscular HGB Conc 32.5 g/dl (32-36); Mean Corpuscular Hemoglobin 29.7 pg (26-34); Mean Corpuscular Volume 91.3 fl (80-100); Mean Platelet Volume 11.7 fl (7.4-10.4); Monocytes Absolute Auto 1.5 K/mm3 (0.1-0.6); Monocytes Percent Auto 18.2 % (2.6-8.5); Neutrophils Absolute Auto 4.8 K/mm3 (1.3-6.7); Neutrophils Percent Auto 58.9 % (45.5-73.1); Platelet Count Result 183 k/mm3 (150-375); Red Blood Count 4.72 M/mm3 (4.2-5.4); Red Cell Distribution Width 13.6 % (11.5-14.5); White Blood Count 8.2 K/mm3 (4.5-10.0)
[2021-06-14 08:21] LABS: Alanine Aminotransferase 25 U/L (4-35); Albumin Level 3.6 g/dL (3.5-5.1); Alkaline Phosphatase 92 U/L (38-126); Anion Gap 11 mmol/L (8-16); Aspartate Amino Transferase 35 U/L (14-36); Bilirubin,Total 0.8 mg/dL (0.2-1.3); Blood Urea Nitrogen 42 mg/dL (7-17); Calcium 8.7 mg/dL (8.4-10.2); Carbon Dioxide 19 mmol/L (22-30); Chloride 106 mmol/L (98-107); Estimated CRCL calculation 20 ml/min; Estimated Glomerular Filt Rate 31; Glucose 81 mg/dL (65-110); Potassium 3.8 mmol/L (3.4-5.0); Sodium 136 mmol/L (137-145)
--- NOTE | 2021-06-14 08:40 | P.PNIM_ITS ---
Progress Note: A&P Assessment and Plan (1) Acute metabolic encephalopathy: Code(s): G93.41 - Metabolic encephalopathy Status: Acute Assessment and Plan: * Could be related to TBI or possible UTI * Patient seems alert * Wonder if a part of this is not do to her [place] * Head ct ordered and pending * Do not think it is a stroke (2) Nausea & vomiting: Qualifiers: Vomiting type: unspecified Qualified Code(s): R11.2 - Nausea with vomiting, unspecified Code(s): R11.2 - Nausea with vomiting, unspecified Status: Acute Assessment and Plan: * Seems to be resolved at this time * Patient able to tolerate a diet * Continue zofran (3) Diarrhea: Qualifiers: Diarrhea type: unspecified type Qualified Code(s): R19.7 - Diarrhea, unspecified Code(s): R19.7 - Diarrhea, unspecified Status: Acute Assessment and Plan: * Complaints of black stools * Order a quiac stool to check for blood * Stool studies if persistent * Supportive care (4) Dehydration: Code(s): E86.0 - Dehydration Status: Acute Assessment and Plan: * BUN Cr elevated * Probably from the vomiting and diarrhea * IV fluids * Push oral intake * Trend labs (5) EDIN (acute kidney injury): Code(s): N17.9 - Acute kidney failure, unspecified Status: Acute Assessment and Plan: * Likely to be pre renal azotemia * Will send urine lytes * Continue IV fluids, dc'd at this time * Renal ultrasound showed 7.4 cm left renal cyst. Otherwise normal kidneys without hydronephrosis. * Trend labs * FeNa score is 0.5 indicating prerenal etiology (6) TBI (traumatic brain injury): Qualifiers: Encounter type: subsequent encounter Loss of consciousness presence/duration: with LOC of unspecified duration Qualified Code(s): S06.9X9D - Unspecified intracranial injury with loss of consciousness of unspecified duration, subsequent encounter Code(s): S06.9X9A - Unspecified intracranial injury with loss of consciousness of unspecified duration, initial encounter Status: Acute Assessment and Plan: * Unchanged * Continue trazodone (7) Atrial fibrillation: Qualifiers: Atrial fibrillation type: unspecified Qualified Code(s): I48.91 - Unspecified atrial fibrillation Code(s): I48.91 - Unspecified atrial fibrillation Status: Acute Assessment and Plan: * Telemonitor indicated afib RVR * Metoprolol 5mg IV push once given * Cards consult thank you foryour help * Repeat Echo, last echo was 2018 * Continue home diltiazem and metoprolol at home * Eliquis at home continued * Continue to monitor (8) Hypertension: Code(s): I10 - Essential (primary) hypertension Status: Acute Assessment and Plan: * BP stable 113/87 * Continue home captopril, metoprolol and dilt * Trend BP * Adjust therapy as indicated (9) COVID-19: Code(s): U07.1 - COVID-19 Status: Acute Assessment and Plan: * Currently on RA * Will trend inflammatory markers * no need to start remdesivir * Start Decadron * Get a sputum culture (10) Abnormal urinalysis: Code(s): R82.90 - Unspecified abnormal findings in urine Status: Acute Assessment and Plan:
--- NOTE | 2021-06-14 08:40 | PM.IMPN ---
Progress Note: A&P Assessment and Plan (1) Acute metabolic encephalopathy: Code(s): G93.41 - Metabolic encephalopathy Status: Acute Assessment and Plan: Could be related to TBI or possible UTI Patient seems alert Wonder if a part of this is not do to her [facility] Head ct ordered and pending Do not think it is a stroke (2) Nausea & vomiting: Qualifiers: Vomiting type: unspecified Qualified Code(s): R11.2 - Nausea with vomiting, unspecified Code(s): R11.2 - Nausea with vomiting, unspecified Status: Acute Assessment and Plan: Seems to be resolved at this time Patient able to tolerate a diet Continue zofran (3) Diarrhea: Qualifiers: Diarrhea type: unspecified type Qualified Code(s): R19.7 - Diarrhea, unspecified Code(s): R19.7 - Diarrhea, unspecified Status: Acute Assessment and Plan: Complaints of black stools Order a quiac stool to check for blood Stool studies if persistent Supportive care (4) Dehydration: Code(s): E86.0 - Dehydration Status: Acute Assessment and Plan: BUN Cr elevated Probably from the vomiting and diarrhea IV fluids Push oral intake Trend labs (5) EDIN (acute kidney injury): Code(s): N17.9 - Acute kidney failure, unspecified Status: Acute Assessment and Plan: Likely to be pre renal azotemia Will send urine lytes Continue IV fluids, dc'd at this time Renal ultrasound showed 7.4 cm left renal cyst. Otherwise normal kidneys without hydronephrosis. Trend labs FeNa score is 0.5 indicating prerenal etiology (6) TBI (traumatic brain injury): Qualifiers: Encounter type: subsequent encounter Loss of consciousness presence/duration: with LOC of unspecified duration Qualified Code(s): S06.9X9D - Unspecified intracranial injury with loss of consciousness of unspecified duration, subsequent encounter Code(s): S06.9X9A - Unspecified intracranial injury with loss of consciousness of unspecified duration, initial encounter Status: Acute Assessment and Plan: Unchanged Continue trazodone (7) Atrial fibrillation: Qualifiers: Atrial fibrillation type: unspecified Qualified Code(s): I48.91 - Unspecified atrial fibrillation Code(s): I48.91 - Unspecified atrial fibrillation Status: Acute Assessment and Plan: Telemonitor indicated afib RVR Metoprolol 5mg IV push once given Cards consult thank you foryour help Repeat Echo, last echo was 2018 Continue home diltiazem and metoprolol at home Eliquis at home continued Continue to monitor (8) Hypertension: Code(s): I10 - Essential (primary) hypertension Status: Acute Assessment and Plan: BP stable 113/87 Continue home captopril, metoprolol and dilt Trend BP Adjust therapy as indicated (9) COVID-19: Code(s): U07.1 - COVID-19 Status: Acute Assessment and Plan: Currently on RA Will trend inflammatory markers no need to start remdesivir Start Decadron Get a sputum culture (10) Abnormal urinalysis: Code(s): R82.90 - Unspecified abnormal findings in urine Status: Acute Assessment and Plan: UA shows signs of a possible UTI Culture pending Trend labs Ceftriaxone started Time Spent With Patient Time with patient: Greater than 35 minutes Subjective Date/time seen: 06/14/21 0840 Interval history: Date/Time: 06/14/21 00:43 Narrative: This is a 76-year-old female with past medical history significant for stroke, atrial fibrillation, patient is a [facility] resident who was brought to the emergency room after staff concerns for the patient's altered mental status she had not been her usual today and for the past several days she to was having nausea vomiting and diarrhea and had a low pulse
--- NOTE | 2021-06-14 10:11 | ECG_ITS ---
Measurements Intervals [place] Rate: 126 P: [place]: 0 QRS: 125 QRSD: 118 T: -16 QT: 324 QTc: 471 Interpretive Statements ATRIAL FIBRILLATION WITH RAPID VENTRICULAR RESPONSE VENTRICULAR PREMATURE COMPLEX RIGHT AXIS DEVIATION RIGHT BUNDLE BRANCH BLOCK CONSIDER HIGH LATERAL INFARCT, AGE INDETERMINATE BORDERLINE ST-T WAVE ABNORMALITY- INFERIOR LEADS BASELINE ARTIFACT- II, AVR, AVL, AVF, V1-V6 ABNORMAL ECG Electronically Signed On 06-14-2021 10:43:12 BITUMINOUS PAVING MACHINE OPERATOR by Flaco Castañeda D.O.
[2021-06-14] MEDS: METOPROLOL TARTRATE INJ 5 MG/5 ML VIAL IV PUSH (10:42)
--- NOTE | 2021-06-14 13:44 | PM.CNCAR ---
Assessment and Plan Assessment and plan (1) Atrial fibrillation: Qualifiers: Atrial fibrillation type: unspecified Qualified Code(s): I48.91 - Unspecified atrial fibrillation Code(s): I48.91 - Unspecified atrial fibrillation Status: Acute Assessment and Plan: Longstanding history of persistent atrial fibrillation with reasonable heart rate control on metoprolol tartrate 150 mg twice daily and unusual regimen of diltiazem 30 mg p.o. Q 8 hours from a prior hospitalization. 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 She had been cleared to resume systemic anticoagulation with Eliquis. Asymptomatic atrial fibrillation with rapid ventricular response secondary to acute illness. Continue hydration, antibiotics and supportive care. Continue anticoagulation. Will give metoprolol tartrate 150 mg p.o. q.12 hours, however, heart rate remains poorly controlled we to initiate IV diltiazem infusion and reduce metoprolol thereafter. If heart rate remains poorly controlled after oral beta-linus transfer to IMU for diltiazem infusion to begin at 10 milligrams/hour with adjustments thereafter. Given her persistent history of atrial fibrillation there are no plans for cardioversion and rate control strategy will be pursued. If diltiazem and/or metoprolol ineffective at controlling her heart rate may consider amiodarone although I would like to try to avoid if possible. I expect when she has further recovered with hydration, antibiotics her heart rate will improve. Obviously, pending COVID PCR this will also directly impact her atrial fibrillation and her overall prognosis. She has been vaccinated as she reports. Monitor for bleeding. Further recommendations follow-up (2) Altered mental status: Code(s): R41.82 - Altered mental status, unspecified Status: Acute Assessment and Plan: Patient presented due to altered mental status improved since admission with IV hydration. Urinalysis concerning for possible UTI. She remains on IV ceftriaxone. (3) EDIN (acute kidney injury): Code(s): N17.9 - Acute kidney failure, unspecified Status: Acute Assessment and Plan: Improved with IV hydration, She was felt to be dehydrated with acute renal failure with a creatinine 2.2 improved to 1.6. Caution with captopril given acute renal failure. Monitor response and tolerance. (4) Lab test positive for detection of COVID-19 virus: Code(s): U07.1 - COVID-19 Status: Acute Assessment and Plan: COVID PCR pending. She remains in isolation. She reports having been fully vaccinated. (5) Hypertension: Code(s): I10 - Essential (primary) hypertension Status: Acute Assessment and Plan: Stable, no acute issues at this time. She remains on high-dose captopril 100 mg twice daily (6) Carotid arterial disease: Code(s): I77.9 - Disorder of arteries and arterioles, unspecified Status: Acute Assessment and Plan: History of high-grade carotid stenosis followed by Dr. Figueroa a vascular surgery as an outpatient. History of Present Illness History of Present Illness Consult date/time: Date of service: 06/14/21 13:44 Cardiology consultation at the request of Maurice FRIEDMAN of the [facility] service for our opinion regarding atrial fibrillation with rapid ventricular response. Requesting physician: Maurice Estrada APN-C Consult reason: atrial fibrillation Reason For Visit: edin Narrative: Patient is a 76 year old female with a past medical history significant for remote 6 stroke, history of traumatic intracerebral hemorrhage status post fall, longstanding persistent atrial fibrillation, hypertension, chronic kidney disease currently a detention resident this since the emergency department secondary to report of altered mental status for the p
[2021-06-14] MEDS: METOPROLOL TARTRATE 50 MG TAB 150 MG PO ×2 (15:02→23:45)
[2021-06-14] MEDS: APIXABAN 5 MG TABLET PO (16:52)
[2021-06-14] MEDS: dilTIAZem HCL 30 MG TABLET PO (17:35)
[2021-06-14] MEDS: HALOPERIDOL LACTATE 5 MG/ML VIAL IM (20:58)
[2021-06-14] MEDS: MELATONIN 3 MG TABLET PO (23:45)
[2021-06-15] VITALS (18 sets, daily range): BP systolic 154–174; BP diastolic 92–119; PULSE 94–137; RESP 18–22; TEMP 36.1–36.8; O2SAT 96–99
[2021-06-15 02:02] LABS: SARS-CoV-2 RNA PCR Positive
[2021-06-15] MEDS: dilTIAZem HCL 30 MG TABLET PO ×3 (05:16→17:56)
[2021-06-15] MEDS: CAPTOPRIL (CAPOTEN) 25 MG TABLET 100 MG PO ×2 (05:16→21:10)
[2021-06-15 05:46] LABS: Basophils Percent Auto 0.4 % (0.2-1.2); Eosinophils Percent Auto 0.1 % (0-4.4); Hematocrit 42.8 % (37.0-47.0); Hemoglobin 14.3 g/dL (12.0-15.0); Immature Granulocyte Absolute 0.02 K/mm3 (0.00-0.031); Immature Granulocyte Percent A 0.3 % (0-0.5); Lymphocytes Absolute Auto 1.02 K/mm3 (0.9-3.2); Lymphocytes Percent Auto 14.4 % (18.3-44.2); Mean Corpuscular HGB Conc 33.4 g/dl (32-36); Mean Corpuscular Hemoglobin 29.9 pg (26-34); Mean Corpuscular Volume 89.4 fl (80-100); Mean Platelet Volume 11.8 fl (7.4-10.4); Monocytes Absolute Auto 1.1 K/mm3 (0.1-0.6); Monocytes Percent Auto 14.9 % (2.6-8.5); Neutrophils Absolute Auto 4.9 K/mm3 (1.3-6.7); Neutrophils Percent Auto 69.9 % (45.5-73.1); Platelet Count Result 188 k/mm3 (150-375); Red Blood Count 4.79 M/mm3 (4.2-5.4); Red Cell Distribution Width 13.8 % (11.5-14.5); White Blood Count 7.1 K/mm3 (4.5-10.0)
[2021-06-15 06:24] LABS: Alanine Aminotransferase 18 U/L (4-35); Albumin Level 2.1 g/dL (3.5-5.1); Alkaline Phosphatase 58 U/L (38-126); Anion Gap 3 mmol/L (8-16); Aspartate Amino Transferase 26 U/L (14-36); Bilirubin,Total 0.3 mg/dL (0.2-1.3); Blood Urea Nitrogen 20 mg/dL (7-17); Calcium 5.6 mg/dL (8.4-10.2); Carbon Dioxide 19 mmol/L (22-30); Chloride 116 mmol/L (98-107); Estimated CRCL calculation 43 ml/min; Estimated Glomerular Filt Rate > 60; Glucose 61 mg/dL (65-110); Potassium 2.3 mmol/L (3.4-5.0); Sodium 138 mmol/L (137-145)
--- NOTE | 2021-06-15 06:40 | P.PNIM_ITS ---
Progress Note: A&P Assessment and Plan (1) Acute metabolic encephalopathy: Code(s): G93.41 - Metabolic encephalopathy Status: Acute Assessment and Plan: * Could be related to TBI or possible UTI * Patient seems alert * Wonder if a part of this is not do to her [place] * Head ct ordered and pending * Do not think it is a stroke (2) Nausea & vomiting: Qualifiers: Vomiting type: unspecified Qualified Code(s): R11.2 - Nausea with vomiting, unspecified Code(s): R11.2 - Nausea with vomiting, unspecified Status: Acute Assessment and Plan: * Seems to be resolved at this time * Patient able to tolerate a diet * Continue zofran (3) Diarrhea: Qualifiers: Diarrhea type: unspecified type Qualified Code(s): R19.7 - Diarrhea, unspecified Code(s): R19.7 - Diarrhea, unspecified Status: Acute Assessment and Plan: * Complaints of black stools * Order a quiac stool to check for blood * Stool studies if persistent * Supportive care (4) Dehydration: Code(s): E86.0 - Dehydration Status: Acute Assessment and Plan: * BUN Cr elevated * Probably from the vomiting and diarrhea * IV fluids * Push oral intake * Trend labs (5) EDIN (acute kidney injury): Code(s): N17.9 - Acute kidney failure, unspecified Status: Acute Assessment and Plan: * Likely to be pre renal azotemia * Will send urine lytes * Continue IV fluids, dc'd at this time * Renal ultrasound showed 7.4 cm left renal cyst. Otherwise normal kidneys without hydronephrosis. * Trend labs * FeNa score is 0.5 indicating prerenal etiology (6) TBI (traumatic brain injury): Qualifiers: Encounter type: subsequent encounter Loss of consciousness presence/duration: with LOC of unspecified duration Qualified Code(s): S06.9X9D - Unspecified intracranial injury with loss of consciousness of unspecified duration, subsequent encounter Code(s): S06.9X9A - Unspecified intracranial injury with loss of consciousness of unspecified duration, initial encounter Status: Acute Assessment and Plan: * Unchanged * Continue trazodone (7) Atrial fibrillation: Qualifiers: Atrial fibrillation type: unspecified Qualified Code(s): I48.91 - Unspecified atrial fibrillation Code(s): I48.91 - Unspecified atrial fibrillation Status: Acute Assessment and Plan: * Telemonitor indicated afib * HR is controlled at this time * Metoprolol 5mg IV push once given * Cards consult thank you for your help * Moved to IMU * Metoprolol increased 150mg PO Q12h [place] * Repeat Echo, last echo was 2017 * Continue home diltiazem * Eliquis at home continued * Continue to monitor (8) Hypertension: Code(s): I10 - Essential (primary) hypertension Status: Acute Assessment and Plan: * BP stable 159/92 * Continue home captopril, metoprolol and dilt * Trend BP * Adjust therapy as indicated (9) COVID-19: Code(s): U07.1 - COVID-19 Status: Acute Assessment and Plan: * Currently on RA * Will trend inflammatory markers * no need to start remdesivir for no indication at this time * Start Decadron * sputum culture ordered and pending (10) Abnormal urinalysis:
--- NOTE | 2021-06-15 06:40 | PM.IMPN ---
Progress Note: A&P Assessment and Plan (1) Acute metabolic encephalopathy: Code(s): G93.41 - Metabolic encephalopathy Status: Acute Assessment and Plan: Could be related to TBI or possible UTI Patient seems alert Wonder if a part of this is not do to her [facility] Head ct ordered and pending Do not think it is a stroke (2) Nausea & vomiting: Qualifiers: Vomiting type: unspecified Qualified Code(s): R11.2 - Nausea with vomiting, unspecified Code(s): R11.2 - Nausea with vomiting, unspecified Status: Acute Assessment and Plan: Seems to be resolved at this time Patient able to tolerate a diet Continue zofran (3) Diarrhea: Qualifiers: Diarrhea type: unspecified type Qualified Code(s): R19.7 - Diarrhea, unspecified Code(s): R19.7 - Diarrhea, unspecified Status: Acute Assessment and Plan: Complaints of black stools Order a quiac stool to check for blood Stool studies if persistent Supportive care (4) Dehydration: Code(s): E86.0 - Dehydration Status: Acute Assessment and Plan: BUN Cr elevated Probably from the vomiting and diarrhea IV fluids Push oral intake Trend labs (5) EDIN (acute kidney injury): Code(s): N17.9 - Acute kidney failure, unspecified Status: Acute Assessment and Plan: Likely to be pre renal azotemia Will send urine lytes Continue IV fluids, dc'd at this time Renal ultrasound showed 7.4 cm left renal cyst. Otherwise normal kidneys without hydronephrosis. Trend labs FeNa score is 0.5 indicating prerenal etiology (6) TBI (traumatic brain injury): Qualifiers: Encounter type: subsequent encounter Loss of consciousness presence/duration: with LOC of unspecified duration Qualified Code(s): S06.9X9D - Unspecified intracranial injury with loss of consciousness of unspecified duration, subsequent encounter Code(s): S06.9X9A - Unspecified intracranial injury with loss of consciousness of unspecified duration, initial encounter Status: Acute Assessment and Plan: Unchanged Continue trazodone (7) Atrial fibrillation: Qualifiers: Atrial fibrillation type: unspecified Qualified Code(s): I48.91 - Unspecified atrial fibrillation Code(s): I48.91 - Unspecified atrial fibrillation Status: Acute Assessment and Plan: Telemonitor indicated afib HR is controlled at this time Metoprolol 5mg IV push once given Cards consult thank you for your help Moved to IMU Metoprolol increased 150mg PO Q12h ANGELITO Repeat Echo, last echo was 2018 Continue home diltiazem Eliquis at home continued Continue to monitor (8) Hypertension: Code(s): I10 - Essential (primary) hypertension Status: Acute Assessment and Plan: BP stable 159/92 Continue home captopril, metoprolol and dilt Trend BP Adjust therapy as indicated (9) COVID-19: Code(s): U07.1 - COVID-19 Status: Acute Assessment and Plan: Currently on RA Will trend inflammatory markers no need to start remdesivir for no indication at this time Start Decadron sputum culture ordered and pending (10) Abnormal urinalysis: Code(s): R82.90 - Unspecified abnormal findings in urine Status: Acute Assessment and Plan: UA shows signs of a possible UTI Culture came back contaminated Trend labs Ceftriaxone started (11) Hypomagnesemia: Code(s): E83.42 - Hypomagnesemia Status: Acute Assessment and Plan: Mg 1.0 Replace with 4gm IV once Will recheck post KCL infusion Trend labs Labs in the am (12) Hypokalemia: Code(s): E87.6 - Hypokalemia Status: Acute Assessment and Plan: K is 2.3 Replaced with 40 PO and 40 IV Recheck one hour post infusion Trend
[2021-06-15] MEDS: MAGNESIUM SULF 4 GM/WATER100ML 4 GM/100 ML BAG IVPB (07:58)
[2021-06-15] MEDS: POTASSIUM CHLORIDE 20 MEQ TABLET 40 MEQ PO (07:59)
[2021-06-15] MEDS: METOPROLOL TARTRATE 50 MG TAB 150 MG PO ×2 (07:59→21:09)
[2021-06-15] MEDS: APIXABAN 5 MG TABLET PO ×2 (07:59→17:56)
[2021-06-15] MEDS: ATORVASTATIN 10 MG TABLET PO (07:59)
[2021-06-15 08:39] LABS: Glucose Point of Care 154 mg/dl (65-105)
[2021-06-15] MEDS: KCL 40 MEQ/WATER 100 ML 100 ML 25 ML IVPB (09:23)
[2021-06-15 12:14] LABS: Glucose Point of Care 103 mg/dl (65-105)
[2021-06-15] MEDS: DEXAMETHASONE 2 MG TABLET 6 MG PO (13:50)
--- NOTE | 2021-06-15 13:56 | PM.PNCARD ---
Progress Note: A&P Assessment and Plan (1) Atrial fibrillation: Qualifiers: Atrial fibrillation type: unspecified Qualified Code(s): I48.91 - Unspecified atrial fibrillation Code(s): I48.91 - Unspecified atrial fibrillation Status: Acute Assessment and Plan: Longstanding history of persistent atrial fibrillation with reasonable heart rate control on metoprolol tartrate 150 mg twice daily and unusual regimen of diltiazem 30 mg p.o. Q 8 hours from a prior hospitalization. 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 She had been cleared to resume systemic anticoagulation with Eliquis. Asymptomatic atrial fibrillation with rapid ventricular response secondary to acute illness. Continue hydration, antibiotics and supportive care. Continue systemic anticoagulation and Metoprolol tartrate 150 mg p.o. q.12 hours. Transition po Diltiazem 20mg q8h to Diltiazem CD 120mg daily in AM. Monitor for bleeding. (2) Hypomagnesemia: Code(s): E83.42 - Hypomagnesemia Status: Acute Assessment and Plan: Severe hypo magnesemia around 1.0. Supplement to keep magnesium level around 2.0. (3) Hypokalemia: Code(s): E87.6 - Hypokalemia Status: Acute Assessment and Plan: Severe hypokalemia 2.3 this morning. Aggressive potassium supplementation goal to keep around 4.0. Per hospitalist service. Check potassium level this morning. Continue to keep patient in [place] on telemetry until potassium at least greater than 3 and magnesium greater than 1.5. (4) Lab test positive for detection of COVID-19 virus: Code(s): U07.1 - COVID-19 Status: Acute Assessment and Plan: COVID PCR positive. She remains in isolation. Next methicillin initiated. (5) Hypertension: Code(s): I10 - Essential (primary) hypertension Status: Acute Assessment and Plan: Stable, no acute issues at this time. She remains on high-dose captopril 100 mg twice daily (6) Altered mental status: Code(s): R41.82 - Altered mental status, unspecified Status: Acute Assessment and Plan: Patient presented due to altered mental status improved since admission with IV hydration. Urinalysis concerning for possible UTI. She remains on IV ceftriaxone. Patient is also COVID positive. (7) EDIN (acute kidney injury): Code(s): N17.9 - Acute kidney failure, unspecified Status: Acute Assessment and Plan: Improved with IV hydration, She was felt to be dehydrated with acute renal failure with a creatinine 2.2 improved to 1.6. Caution with captopril given acute renal failure. Monitor response and tolerance. (8) Carotid arterial disease: Code(s): I77.9 - Disorder of arteries and arterioles, unspecified Status: Acute Assessment and Plan: History of high-grade carotid stenosis followed by Dr. Figueroa a vascular surgery as an outpatient. Subjective Date/time seen: Date of service: 06/15/21 13:56 Follow-up for atrial fibrillation with RVR. Patient quite confused last night. She left isolation in her room due to confusion. Improved today. Heart rate better controlled on oral metoprolol and diltiazem. See patient has no complaints. Somewhat lethargic but arousable, calm denies chest pain, palpitations or significant shortness of breath. COVID PCR returned positive. Review of Systems Review of Systems: All systems reviewed & are unremarkable except as noted in HPI and below ROS unobtainable: Yes unobtainable due to mental status Constitutional: Constitutional: Reports as per HPI, Reports no additional constitutional complaints and Reports weakness Eyes: Eyes: Reports as per HPI and Reports no additional eye complaints ENT: Reports system reviewed and no additional complaints, except as documented and Reports as per HPI Cardiovascu
[2021-06-15 17:09] LABS: Glucose Point of Care 106 mg/dl (65-105)
[2021-06-15 20:57] LABS: Glucose Point of Care 168 mg/dl (65-105)
[2021-06-15] MEDS: traZODone HCL 50 MG TABLET PO (21:10)
[2021-06-15] MEDS: MELATONIN 3 MG TABLET PO (21:10)
[2021-06-16] VITALS (19 sets, daily range): BP systolic 149–191; BP diastolic 73–120; PULSE 81–145; RESP 16–20; TEMP 36.4–36.7; O2SAT 97–99
[2021-06-16 05:48] LABS: Hematocrit 41.6 % (37.0-47.0); Hemoglobin 13.8 g/dL (12.0-15.0); Immature Granulocyte Absolute 0.03 K/mm3 (0.00-0.031); Immature Granulocyte Percent A 1.1 % (0-0.5); Lymphocytes Absolute Auto 0.62 K/mm3 (0.9-3.2); Lymphocytes Percent Auto 21.9 % (18.3-44.2); Mean Corpuscular HGB Conc 33.2 g/dl (32-36); Mean Corpuscular Hemoglobin 29.6 pg (26-34); Mean Corpuscular Volume 89.3 fl (80-100); Mean Platelet Volume 11.2 fl (7.4-10.4); Monocytes Absolute Auto 0.2 K/mm3 (0.1-0.6); Monocytes Percent Auto 6.7 % (2.6-8.5); Neutrophils Percent Auto 70.3 % (45.5-73.1); Platelet Count Result 177 k/mm3 (150-375); Red Blood Count 4.66 M/mm3 (4.2-5.4); Red Cell Distribution Width 13.8 % (11.5-14.5); White Blood Count 2.8 K/mm3 (4.5-10.0)
[2021-06-16 06:05] LABS: Alanine Aminotransferase 32 U/L (4-35); Albumin Level 3.8 g/dL (3.5-5.1); Alkaline Phosphatase 98 U/L (38-126); Anion Gap 5 mmol/L (8-16); Aspartate Amino Transferase 42 U/L (14-36); Bilirubin,Total 0.6 mg/dL (0.2-1.3); Blood Urea Nitrogen 21 mg/dL (7-17); CRP 1.1 mg/dL (<1.0); Carbon Dioxide 22 mmol/L (22-30); Chloride 108 mmol/L (98-107); Estimated CRCL calculation 28 ml/min; Estimated Glomerular Filt Rate 48; Glucose 141 mg/dL (65-110); Lactate Dehydrogenase 500 U/L (313-618); Magnesium 2.4 mg/dL (1.6-2.3); Potassium 4.7 mmol/L (3.4-5.0); Sodium 135 mmol/L (137-145)
[2021-06-16 06:06] LABS: D Dimer 0.38 ug/mL (<0.48)
--- NOTE | 2021-06-16 08:30 | PM.IMPN ---
Progress Note: A&P Assessment and Plan (1) Acute metabolic encephalopathy: Code(s): G93.41 - Metabolic encephalopathy Status: Acute Assessment and Plan: Could be related to TBI or possible UTI Patient seems alert Wonder if a part of this is not do to her [facility] Head ct shows a 7mm hyperdense mass in the right cerebellum, and old strokes Brain MRI with and without contrast ordered Do not think it is a stroke (2) EDIN (acute kidney injury): Code(s): N17.9 - Acute kidney failure, unspecified Status: Acute Assessment and Plan: Likely to be pre renal azotemia Will send urine lytes Renal ultrasound showed 7.4 cm left renal cyst. Otherwise normal kidneys without hydronephrosis. Trend labs FeNa score is 0.5 indicating prerenal etiology BUN/Cr are back to baseline 21/1.10 (3) TBI (traumatic brain injury): Qualifiers: Encounter type: subsequent encounter Loss of consciousness presence/duration: with LOC of unspecified duration Qualified Code(s): S06.9X9D - Unspecified intracranial injury with loss of consciousness of unspecified duration, subsequent encounter Code(s): S06.9X9A - Unspecified intracranial injury with loss of consciousness of unspecified duration, initial encounter Status: Acute Assessment and Plan: Unchanged Continue trazodone (4) Atrial fibrillation: Qualifiers: Atrial fibrillation type: unspecified Qualified Code(s): I48.91 - Unspecified atrial fibrillation Code(s): I48.91 - Unspecified atrial fibrillation Status: Acute Assessment and Plan: Telemonitor indicated afib HR is uncontrolled Cards consult thank you for your help Moved to IMU Metoprolol increased 150mg PO Q12h ANGELITO Repeat Echo, last echo was 2018 Changed to a Cardizem drip Eliquis at home continued Continue to monitor (5) Hypertension: Code(s): I10 - Essential (primary) hypertension Status: Acute Assessment and Plan: BP stable 166/73 Continue home captopril, metoprolol and dilt Trend BP Adjust therapy as indicated (6) COVID-19: Code(s): U07.1 - COVID-19 Status: Acute Assessment and Plan: Currently on RA Will trend inflammatory markers no need to start remdesivir for no indication at this time Start Decadron sputum culture ordered and pending (7) Abnormal urinalysis: Code(s): R82.90 - Unspecified abnormal findings in urine Status: Acute Assessment and Plan: UA shows signs of a possible UTI Culture came back contaminated Trend labs Ceftriaxone continued (8) Hypomagnesemia: Code(s): E83.42 - Hypomagnesemia Status: Acute Assessment and Plan: Mg 2.4 Trend labs Labs in the am (9) Hypokalemia: Code(s): E87.6 - Hypokalemia Status: Acute Assessment and Plan: K is 4.7 Trend labs Labs in the am Time Spent With Patient Time with patient: Greater than 35 minutes Subjective Date/time seen: 06/16/21 0830 Interval history: Date/Time: 06/14/21 00:43 Narrative: This is a 76-year-old female with past medical history significant for stroke, atrial fibrillation, patient is a custodial resident who was brought to the emergency room after staff concerns for the patient's altered mental status she had not been her usual today and for the past several days she to was having nausea vomiting and diarrhea and had a low pulse ox EMS was called and brought to our ED department for further evaluation. At the time of my visit patient was unable to give me any history she was very circumstantial. Most of the history has been obtained upon reviewing medical records and phone discussion with emergency room doctor. Preliminary workup was significant for chemistry panel with a BUN and creatinine of 47 and 2.2, a chest x-ray was clear and COVID-1
--- NOTE | 2021-06-16 08:30 | P.PNIM_ITS ---
Progress Note: A&P Assessment and Plan (1) Acute metabolic encephalopathy: Code(s): G93.41 - Metabolic encephalopathy Status: Acute Assessment and Plan: * Could be related to TBI or possible UTI * Patient seems alert * Wonder if a part of this is not do to her [facility] * Head ct shows a 7mm hyperdense mass in the right cerebellum, and old strokes * Brain MRI with and without contrast ordered * Do not think it is a stroke (2) EDIN (acute kidney injury): Code(s): N17.9 - Acute kidney failure, unspecified Status: Acute Assessment and Plan: * Likely to be pre renal azotemia * Will send urine lytes * Renal ultrasound showed 7.4 cm left renal cyst. Otherwise normal kidneys without hydronephrosis. * Trend labs * FeNa score is 0.5 indicating prerenal etiology * BUN/Cr are back to baseline 21/.10 (3) TBI (traumatic brain injury): Qualifiers: Encounter type: subsequent encounter Loss of consciousness presence/duration: with LOC of unspecified duration Qualified Code(s): S06.9X9D - Unspecified intracranial injury with loss of consciousness of unspecified duration, subsequent encounter Code(s): S06.9X9A - Unspecified intracranial injury with loss of consciousness of unspecified duration, initial encounter Status: Acute Assessment and Plan: * Unchanged * Continue trazodone (4) Atrial fibrillation: Qualifiers: Atrial fibrillation type: unspecified Qualified Code(s): I48.91 - Unspecified atrial fibrillation Code(s): I48.91 - Unspecified atrial fibrillation Status: Acute Assessment and Plan: * Telemonitor indicated afib * HR is uncontrolled * Cards consult thank you for your help * Moved to IMU * Metoprolol increased 150mg PO Q12h ANGELITO * Repeat Echo, last echo was 2018 * Changed to a Cardizem drip * Eliquis at home continued * Continue to monitor (5) Hypertension: Code(s): I10 - Essential (primary) hypertension Status: Acute Assessment and Plan: * BP stable 166/73 * Continue home captopril, metoprolol and dilt * Trend BP * Adjust therapy as indicated (6) COVID-19: Code(s): U07.1 - COVID-19 Status: Acute Assessment and Plan: * Currently on RA * Will trend inflammatory markers * no need to start remdesivir for no indication at this time * Start Decadron * sputum culture ordered and pending (7) Abnormal urinalysis: Code(s): R82.90 - Unspecified abnormal findings in urine Status: Acute Assessment and Plan: * UA shows signs of a possible UTI * Culture came back contaminated * Trend labs * Ceftriaxone continued (8) Hypomagnesemia: Code(s): E83.42 - Hypomagnesemia Status: Acute Assessment and Plan: * Mg 2.4 * Trend labs * Labs in the am (9) Hypokalemia: Code(s): E87.6 - Hypokalemia Status: Acute Assessment and Plan: * K is 4.7 * Trend labs * Labs in the am Time Spent With Patient Time with patient: Greater than 35 minutes Subjective Date/time seen: 06/16/2130 Interval history: Date/Time: 06/14/21 00:43 Narrative: This is a 76-year-old female with past medical history significant for stroke, atrial fibrillation, patient is a [facility] resident who was
[2021-06-16] MEDS: APIXABAN 5 MG TABLET PO ×2 (10:36→16:56)
[2021-06-16] MEDS: ATORVASTATIN 10 MG TABLET PO (10:36)
[2021-06-16] MEDS: METOPROLOL TARTRATE 50 MG TAB 150 MG PO ×2 (10:37→21:28)
[2021-06-16] MEDS: DEXAMETHASONE 2 MG TABLET 6 MG PO (10:37)
[2021-06-16] MEDS: CAPTOPRIL (CAPOTEN) 25 MG TABLET 100 MG PO ×2 (12:27→21:27)
[2021-06-16 18:06] LABS: Glucose Point of Care 175 mg/dl (65-105)
[2021-06-16] MEDS: MELATONIN 3 MG TABLET PO (21:28)
[2021-06-16] MEDS: traZODone HCL 50 MG TABLET PO (21:28)
[2021-06-17] VITALS (16 sets, daily range): BP systolic 146–190; BP diastolic 92–105; PULSE 61–128; RESP 16–22; TEMP 35.9–36.9; O2SAT 90–100
--- NOTE | 2021-06-17 | ECHO_ITS ---
Patient Info Name: Clau Lebron Age: 76 years : 1945 Gender: Female Ht: 63 in Wt: 104 lbs BSA: 1.44 m2 HR: 92 bpm BP: 146 / 92 mmHg Heart Rhythm: Atrial Fibrillation Exam Date: 06/17/2021 10:10 AM Exam Location: [facility] Patient Status: Inpatient Admit Date: 06/15/2021 Staff Ordering Physician: Maurice Estrada Machine Cage Maker: Raz Artis RDCS, RT Attending Provider: Prosper Huizar MD Referring Physician: Sean WALKER; Exam Type: CA echo doppler color flow Study Info Indications I48.1 - Persistent atrial fibrillation Complete two-dimensional, color flow and Doppler transthoracic echocardiogram is performed. Summary 1. Complete two-dimensional, color flow and Doppler transthoracic echocardiogram is performed. 2. Left ventricular chamber dimension is normal. 3. Left ventricular systolic function is normal, estimated at 65-70%. 4. There is moderately increased left ventricular wall thickness. 5. The left ventricular diastolic function is indeterminate. 6. Right atrial chamber dimension is moderately enlarged. 7. There is moderate mitral valve regurgitation. 8. There is moderate tricuspid valve regurgitation. 9. Mild pulmonary hypertension, estimated pulmonary arterial systolic pressure is 35 mmHg. Left Ventricle Left ventricular chamber dimension is normal. Left ventricular systolic function is normal, estimated at 65-70%. There is moderately increased left ventricular wall thickness. The left ventricular diastolic function is indeterminate. Right Ventricle Right ventricular chamber dimension is normal. Right ventricular systolic function is normal. Left Atria Left atrial chamber dimension is mildly enlarged. Right Atria Right atrial chamber dimension is moderately enlarged. Aortic Valve The aortic valve is trileaflet. There is mild aortic valve sclerosis. There is no aortic valve stenosis. There is no aortic valve regurgitation. Pulmonic Valve The pulmonic valve is normal. There is trace pulmonic regurgitation. Mitral Valve The mitral valve has normal leaflets. There is moderate mitral valve regurgitation. The mitral valve annulus is mildly calcified. Tricuspid Valve The tricuspid valve leaflets are normal. There is moderate tricuspid valve regurgitation. Mild pulmonary hypertension, estimated pulmonary arterial systolic pressure is 35 mmHg. Pericardium/Pleural The pericardium appears normal. There is small pericardial effusion. Inferior Vena Cava Normal inferior vena cava with >50% collapse upon inspiration consistent with normal right atrial pressure, 5 mmHg. Aorta The aortic root size at the sinus of Valsalva is normal. There is mild aortic atherosclerosis. Left Ventricular Outflow Tract Name Value Normal LVOT 2D LVOT Diameter 1.9 cm LVOT Doppler LVOT Peak Gradient 1 mmHg LVOT Mean Gradient 1 mmHg LVOT VTI 15 cm LVOT VTI/AV VTI Ratio 0.5 LVOT Stroke Volume 43 ml LV
[2021-06-17 04:48] LABS: Basophils Percent Auto 0.1 % (0.2-1.2); Hematocrit 40.3 % (37.0-47.0); Hemoglobin 13.6 g/dL (12.0-15.0); Immature Granulocyte Absolute 0.02 K/mm3 (0.00-0.031); Immature Granulocyte Percent A 0.3 % (0-0.5); Lymphocytes Percent Auto 9.7 % (18.3-44.2); Mean Corpuscular HGB Conc 33.7 g/dl (32-36); Mean Corpuscular Hemoglobin 29.4 pg (26-34); Mean Corpuscular Volume 87.2 fl (80-100); Mean Platelet Volume 11.4 fl (7.4-10.4); Monocytes Absolute Auto 0.4 K/mm3 (0.1-0.6); Monocytes Percent Auto 5.7 % (2.6-8.5); Neutrophils Absolute Auto 6.1 K/mm3 (1.3-6.7); Neutrophils Percent Auto 84.2 % (45.5-73.1); Platelet Count Result 212 k/mm3 (150-375); Red Blood Count 4.62 M/mm3 (4.2-5.4); Red Cell Distribution Width 13.6 % (11.5-14.5); White Blood Count 7.2 K/mm3 (4.5-10.0)
[2021-06-17 05:02] LABS: Alanine Aminotransferase 32 U/L (4-35); Albumin Level 3.7 g/dL (3.5-5.1); Alkaline Phosphatase 89 U/L (38-126); Anion Gap 6 mmol/L (8-16); Aspartate Amino Transferase 36 U/L (14-36); Bilirubin,Total 0.6 mg/dL (0.2-1.3); Blood Urea Nitrogen 30 mg/dL (7-17); Calcium 8.8 mg/dL (8.4-10.2); Carbon Dioxide 25 mmol/L (22-30); Chloride 102 mmol/L (98-107); Estimated CRCL calculation 26 ml/min; Estimated Glomerular Filt Rate 43; Glucose 149 mg/dL (65-110); Potassium 4.2 mmol/L (3.4-5.0); Sodium 133 mmol/L (137-145)
--- NOTE | 2021-06-17 08:00 | PM.IMPN ---
Progress Note: A&P Assessment and Plan (1) Acute metabolic encephalopathy: Code(s): G93.41 - Metabolic encephalopathy Status: Acute Assessment and Plan: Could be related to TBI or possible UTI Patient seems alert Wonder if a part of this is not do to her [facility] Head ct shows a 7mm hyperdense mass in the right cerebellum, and old strokes Brain MRI with and without contrast Was unable to be performed due to patient's claustrophobia Do not think it is a stroke (2) EDIN (acute kidney injury): Code(s): N17.9 - Acute kidney failure, unspecified Status: Acute Assessment and Plan: Likely to be pre renal azotemia Will send urine lytes Renal ultrasound showed 7.4 cm left renal cyst. Otherwise normal kidneys without hydronephrosis. Trend labs FeNa score is 0.5 indicating prerenal etiology BUN/Cr are back to baseline 21/1.10 (3) TBI (traumatic brain injury): Qualifiers: Encounter type: subsequent encounter Loss of consciousness presence/duration: with LOC of unspecified duration Qualified Code(s): S06.9X9D - Unspecified intracranial injury with loss of consciousness of unspecified duration, subsequent encounter Code(s): S06.9X9A - Unspecified intracranial injury with loss of consciousness of unspecified duration, initial encounter Status: Acute Assessment and Plan: Unchanged Continue trazodone (4) Atrial fibrillation: Qualifiers: Atrial fibrillation type: unspecified Qualified Code(s): I48.91 - Unspecified atrial fibrillation Code(s): I48.91 - Unspecified atrial fibrillation Status: Acute Assessment and Plan: Telemonitor indicated afib HR is uncontrolled Cards consult thank you for your help Moved to IMU Metoprolol increased 150mg PO Q12h ANGELITO Repeat Echo, EF 65-70% with a left ventricle diastolic function is indeterminate Changed to a Cardizem drip Elicamilo at home continued Continue to monitor (5) Hypertension: Code(s): I10 - Essential (primary) hypertension Status: Acute Assessment and Plan: BP stable 171/93 Continue home captopril, metoprolol and dilt Trend BP Adjust therapy as indicated (6) COVID-19: Code(s): U07.1 - COVID-19 Status: Acute Assessment and Plan: Currently on RA Will trend inflammatory markers no need to start remdesivir for no indication at this time Start Decadron sputum culture ordered and pending (7) Abnormal urinalysis: Code(s): R82.90 - Unspecified abnormal findings in urine Status: Acute Assessment and Plan: UA shows signs of a possible UTI Culture came back contaminated Trend labs Ceftriaxone continued (8) Hypomagnesemia: Code(s): E83.42 - Hypomagnesemia Status: Acute Assessment and Plan: Mg 2.0 Trend labs Labs in the am (9) Hypokalemia: Code(s): E87.6 - Hypokalemia Status: Acute Assessment and Plan: K is 4.2 Trend labs Labs in the am Time Spent With Patient Time with patient: Greater than 35 minutes Subjective Date/time seen: 06/17/21 0800 Interval history: Date/Time: 06/14/21 00:43 Narrative: This is a 76-year-old female with past medical history significant for stroke, atrial fibrillation, patient is a [facility] resident who was brought to the emergency room after staff concerns for the patient's altered mental status she had not been her usual today and for the past several days she to was having nausea vomiting and diarrhea and had a low pulse ox EMS was called and brought to our ED department for further evaluation. At the time of my visit patient was unable to give me any history she was very circumstantial. Most of the history has been obtained upon reviewing medical records and phone discussion with emergency room doctor. Preliminary workup was signifi
--- NOTE | 2021-06-17 08:00 | P.PNIM_ITS ---
Progress Note: A&P Assessment and Plan (1) Acute metabolic encephalopathy: Code(s): G93.41 - Metabolic encephalopathy Status: Acute Assessment and Plan: * Could be related to TBI or possible UTI * Patient seems alert * Wonder if a part of this is not do to her [facility] * Head ct shows a 7mm hyperdense mass in the right cerebellum, and old strokes * Brain MRI with and without contrast Was unable to be performed due to patient's claustrophobia * Do not think it is a stroke (2) EDIN (acute kidney injury): Code(s): N17.9 - Acute kidney failure, unspecified Status: Acute Assessment and Plan: * Likely to be pre renal azotemia * Will send urine lytes * Renal ultrasound showed 7.4 cm left renal cyst. Otherwise normal kidneys without hydronephrosis. * Trend labs * FeNa score is 0.5 indicating prerenal etiology * BUN/Cr are back to baseline 21/1.10 (3) TBI (traumatic brain injury): Qualifiers: Encounter type: subsequent encounter Loss of consciousness presence/duration: with LOC of unspecified duration Qualified Code(s): S06.9X9D - Unspecified intracranial injury with loss of consciousness of unspecified d uration, subsequent encounter Code(s): S06.9X9A - Unspecified intracranial injury with loss of consciousness of unspecified duration, initial encounter Status: Acute Assessment and Plan: * Unchanged * Continue trazodone (4) Atrial fibrillation: Qualifiers: Atrial fibrillation type: unspecified Qualified Code(s): I48.91 - Unspecified atrial fibrillation Code(s): I48.91 - Unspecified atrial fibrillation Status: Acute Assessment and Plan: * Telemonitor indicated afib * HR is uncontrolled * Cards consult thank you for your help * Moved to IMU * Metoprolol increased 150mg PO Q12h ANGELITO * Repeat Echo, EF 65-70% with a left ventricle diastolic function is indeterminate * Changed to a Cardizem drip * Eliquis at home continued * Continue to monitor (5) Hypertension: Code(s): I10 - Essential (primary) hypertension Status: Acute Assessment and Plan: * BP stable 171/93 * Continue home captopril, metoprolol and dilt * Trend BP * Adjust therapy as indicated (6) COVID-19: Code(s): U07.1 - COVID-19 Status: Acute Assessment and Plan: * Currently on RA * Will trend inflammatory markers * no need to start remdesivir for no indication at this time * Start Decadron * sputum culture ordered and pending (7) Abnormal urinalysis: Code(s): R82.90 - Unspecified abnormal findings in urine Status: Acute Assessment and Plan: * UA shows signs of a possible UTI * Culture came back contaminated * Trend labs * Ceftriaxone continued (8) Hypomagnesemia: Code(s): E83.42 - Hypomagnesemia Status: Acute Assessment and Plan: * Mg 2.0 * Trend labs * Labs in the am (9) Hypokalemia: Code(s): E87.6 - Hypokalemia Status: Acute Assessment and Plan: * K is 4.2 * Trend labs * Labs in the am Time Spent With Patient Time with patient: Greater than 35 minutes Subjective Date/time seen: 06/17/21 0800 Interval history: Date/Time: 06/14/21 00:43 Narrative: This is a 76-year-old female wit
[2021-06-17] MEDS: DEXAMETHASONE 2 MG TABLET 6 MG PO (08:18)
[2021-06-17] MEDS: METOPROLOL TARTRATE 50 MG TAB 150 MG PO ×2 (08:18→21:33)
[2021-06-17] MEDS: ATORVASTATIN 10 MG TABLET PO (08:19)
[2021-06-17] MEDS: CAPTOPRIL (CAPOTEN) 25 MG TABLET 100 MG PO ×2 (08:19→21:33)
[2021-06-17] MEDS: APIXABAN 5 MG TABLET PO ×2 (08:19→18:04)
--- NOTE | 2021-06-17 12:20 | PM.PNCARD ---
Progress Note: A&P Assessment and Plan (1) Atrial fibrillation: Qualifiers: Atrial fibrillation type: unspecified Qualified Code(s): I48.91 - Unspecified atrial fibrillation Code(s): I48.91 - Unspecified atrial fibrillation Status: Acute Assessment and Plan: Longstanding history of persistent atrial fibrillation with reasonable heart rate control on metoprolol tartrate 150 mg twice daily and unusual regimen of diltiazem 30 mg p.o. Q 8 hours from a prior hospitalization. 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 She had been cleared to resume systemic anticoagulation with Eliquis. Asymptomatic atrial fibrillation with rapid ventricular response secondary to acute illness. Continue hydration, antibiotics and supportive care. Continue systemic anticoagulation and Metoprolol tartrate 150 mg p.o. q.12 hours. Transition back to oral short-acting diltiazem 60 mg p.o. q.8 hours for now and discontinue diltiazem infusion. (2) Hypomagnesemia: Code(s): E83.42 - Hypomagnesemia Status: Acute Assessment and Plan: Repleted. Continue to monitor. 2.0 this morning. (3) Hypokalemia: Code(s): E87.6 - Hypokalemia Status: Acute Assessment and Plan: Electrolytes replete. Continue to monitor very closely. Aggressive potassium supplementation goal to keep around 4.0. Per hospitalist service. (4) Lab test positive for detection of COVID-19 virus: Code(s): U07.1 - COVID-19 Status: Acute Assessment and Plan: COVID PCR positive. She remains in isolation. Next methicillin initiated. (5) Hypertension: Code(s): I10 - Essential (primary) hypertension Status: Acute Assessment and Plan: Stable, no acute issues at this time. She remains on high-dose captopril 100 mg twice daily (6) Altered mental status: Code(s): R41.82 - Altered mental status, unspecified Status: Acute Assessment and Plan: Patient presented due to altered mental status improved since admission with IV hydration. Urinalysis concerning for possible UTI. She remains on IV ceftriaxone. Patient is also COVID positive. (7) EDIN (acute kidney injury): Code(s): N17.9 - Acute kidney failure, unspecified Status: Acute Assessment and Plan: Improved with IV hydration, She was felt to be dehydrated with acute renal failure with a creatinine 2.2 improved to 1.6. Caution with captopril given acute renal failure. Monitor response and tolerance. (8) Carotid arterial disease: Code(s): I77.9 - Disorder of arteries and arterioles, unspecified Status: Acute Assessment and Plan: History of high-grade carotid stenosis followed by Dr. Figueroa a vascular surgery as an outpatient. Subjective Date/time seen: Date of service: 06/17/21 12:20 Follow-up for atrial fibrillation with rapid ventricular response Patient confused at times. Denies chest pain or significant shortness of breath. Indicating she wants to go home. Heart rate better controlled on diltiazem 5 milligrams/hour. Denies palpitations or dizziness. Review of Systems Review of Systems: All systems reviewed & are unremarkable except as noted in HPI and below ROS unobtainable: Yes unobtainable due to mental status Constitutional: Constitutional: Reports as per HPI, Reports no additional constitutional complaints and Reports weakness Eyes: Eyes: Reports as per HPI and Reports no additional eye complaints ENT: Reports system reviewed and no additional complaints, except as documented and Reports as per HPI Cardiovascular: Cardiovascular: Reports as per HPI, Reports no additional cardiovascular complaints, Denies chest pain, Denies diaphoresis, Denies pedal edema, Denies leg edema, Denies lightheadedness, Denies palpitations, Denies dyspnea and Denies dyspnea on e
[2021-06-17] MEDS: dilTIAZem HCL 60 MG TABLET PO ×2 (13:12→21:33)
[2021-06-17] MEDS: MELATONIN 3 MG TABLET PO (21:33)
[2021-06-18] VITALS (19 sets, daily range): BP systolic 146–174; BP diastolic 87–129; PULSE 77–127; RESP 16–24; TEMP 35.9–37; O2SAT 95–99
[2021-06-18] MEDS: dilTIAZem HCL 60 MG TABLET PO ×3 (05:04→20:53)
[2021-06-18 05:47] LABS: Alanine Aminotransferase 61 U/L (4-35); Albumin Level 4.5 g/dL (3.5-5.1); Alkaline Phosphatase 100 U/L (38-126); Anion Gap 11 mmol/L (8-16); Aspartate Amino Transferase 54 U/L (14-36); Basophils Percent Auto 0.1 % (0.2-1.2); Bilirubin,Total 0.9 mg/dL (0.2-1.3); Blood Urea Nitrogen 37 mg/dL (7-17); Calcium 9.5 mg/dL (8.4-10.2); Carbon Dioxide 26 mmol/L (22-30); Chloride 99 mmol/L (98-107); Estimated CRCL calculation 24 ml/min; Estimated Glomerular Filt Rate 40; Glucose 143 mg/dL (65-110); Hematocrit 49.8 % (37.0-47.0); Hemoglobin 16.2 g/dL (12.0-15.0); Immature Granulocyte Absolute 0.07 K/mm3 (0.00-0.031); Immature Granulocyte Percent A 0.6 % (0-0.5); Lymphocytes Absolute Auto 0.82 K/mm3 (0.9-3.2); Lymphocytes Percent Auto 6.8 % (18.3-44.2); Magnesium 2.1 mg/dL (1.6-2.3); Mean Corpuscular HGB Conc 32.5 g/dl (32-36); Mean Corpuscular Hemoglobin 29.5 pg (26-34); Mean Corpuscular Volume 90.5 fl (80-100); Mean Platelet Volume 11.4 fl (7.4-10.4); Monocytes Absolute Auto 0.6 K/mm3 (0.1-0.6); Monocytes Percent Auto 4.7 % (2.6-8.5); Neutrophils Absolute Auto 10.6 K/mm3 (1.3-6.7); Neutrophils Percent Auto 87.8 % (45.5-73.1); Platelet Count Result 276 k/mm3 (150-375); Potassium 4.3 mmol/L (3.4-5.0); Red Cell Distribution Width 13.6 % (11.5-14.5); Sodium 136 mmol/L (137-145); White Blood Count 12.1 K/mm3 (4.5-10.0)
--- NOTE | 2021-06-18 10:00 | P.PNIM_ITS ---
Progress Note: A&P Assessment and Plan (1) Acute metabolic encephalopathy: Code(s): G93.41 - Metabolic encephalopathy Status: Acute Assessment and Plan: * Could be related to TBI or possible UTI * Patient seems alert but rowdy today * Wonder if a part of this is not do to her [place] [employer] [place] * Head ct shows a 7mm hyperdense mass in the right cerebellum, and old strokes * Brain MRI with and without contrast Was unable to be performed due to patient's claustrophobia * Do not think it is a stroke (2) EDIN (acute kidney injury): Code(s): N17.9 - Acute kidney failure, unspecified Status: Acute Assessment and Plan: * Likely to be pre renal azotemia * Will send urine lytes * Renal ultrasound showed 7.4 cm left renal cyst. Otherwise normal kidneys without hydronephrosis. * Trend labs * FeNa score is 0.5 indicating prerenal etiology * BUN/Cr are trending back up currently 37/1.30 (3) TBI (traumatic brain injury): Qualifiers: Encounter type: subsequent encounter Loss of consciousness presence/duration: with LOC of unspecified duration Qualified Code(s): S06.9X9D - Unspecified intracranial injury with loss of consciousness of unspecified duration, subsequent encounter Code(s): S06.9X9A - Unspecified intracranial injury with loss of consciousness of unspecified duration, initial encounter Status: Acute Assessment and Plan: * Unchanged * Continue trazodone (4) Atrial fibrillation: Qualifiers: Atrial fibrillation type: unspecified Qualified Code(s): I48.91 - Unspecified atrial fibrillation Code(s): I48.91 - Unspecified atrial fibrillation Status: Acute Assessment and Plan: * Telemonitor indicated afib * HR is uncontrolled * Cards consult thank you for your help * Will move out of IMU since patient has been off cardizem for greater than 24 hours * Metoprolol increased 150mg PO Q12h ANGELITO * Repeat Echo, EF 65-70% with a left ventricle diastolic function is indeterminate * Change cardizem to PO * Eliquis at home continued * Continue to monitor (5) Hypertension: Code(s): I10 - Essential (primary) hypertension Status: Acute Assessment and Plan: * BP stable 173/114 * Continue home captopril, metoprolol and dilt * Trend BP * Adjust therapy as indicated (6) COVID-19: Code(s): U07.1 - COVID-19 Status: Acute Assessment and Plan: * Currently on RA * Will trend inflammatory markers * no need to start remdesivir for no indication at this time * Start Decadron * sputum culture ordered and pending (7) Abnormal urinalysis: Code(s): R82.90 - Unspecified abnormal findings in urine Status: Acute Assessment and Plan: * UA shows signs of a possible UTI * Culture came back contaminated * Trend labs * Ceftriaxone continued (8) Hypomagnesemia: Code(s): E83.42 - Hypomagnesemia Status: Acute Assessment and Plan: * Mg 2.1 * Trend labs * Labs in the am (9) Hypokalemia: Code(s): E87.6 - Hypokalemia Status: Acute Assessment and Plan: * K is 4.3 * Trend labs * Labs in the am (10) Transaminitis: Code(s): R74.01 - Elevation of levels of liver transaminase levels Status: Acute Assess
--- NOTE | 2021-06-18 10:00 | PM.IMPN ---
Progress Note: A&P Assessment and Plan (1) Acute metabolic encephalopathy: Code(s): G93.41 - Metabolic encephalopathy Status: Acute Assessment and Plan: Could be related to TBI or possible UTI Patient seems alert but beka today Wonder if a part of this is not do to her [facility] Head ct shows a 7mm hyperdense mass in the right cerebellum, and old strokes Brain MRI with and without contrast Was unable to be performed due to patient's claustrophobia Do not think it is a stroke (2) EDIN (acute kidney injury): Code(s): N17.9 - Acute kidney failure, unspecified Status: Acute Assessment and Plan: Likely to be pre renal azotemia Will send urine lytes Renal ultrasound showed 7.4 cm left renal cyst. Otherwise normal kidneys without hydronephrosis. Trend labs FeNa score is 0.5 indicating prerenal etiology BUN/Cr are trending back up currently 37/1.30 (3) TBI (traumatic brain injury): Qualifiers: Encounter type: subsequent encounter Loss of consciousness presence/duration: with LOC of unspecified duration Qualified Code(s): S06.9X9D - Unspecified intracranial injury with loss of consciousness of unspecified duration, subsequent encounter Code(s): S06.9X9A - Unspecified intracranial injury with loss of consciousness of unspecified duration, initial encounter Status: Acute Assessment and Plan: Unchanged Continue trazodone (4) Atrial fibrillation: Qualifiers: Atrial fibrillation type: unspecified Qualified Code(s): I48.91 - Unspecified atrial fibrillation Code(s): I48.91 - Unspecified atrial fibrillation Status: Acute Assessment and Plan: Telemonitor indicated afib HR is uncontrolled Cards consult thank you for your help Will move out of IMU since patient has been off cardizem for greater than 24 hours Metoprolol increased 150mg PO Q12h ANGELITO Repeat Echo, EF 65-70% with a left ventricle diastolic function is indeterminate Change cardizem to PO Eliquis at home continued Continue to monitor (5) Hypertension: Code(s): I10 - Essential (primary) hypertension Status: Acute Assessment and Plan: BP stable 173/114 Continue home captopril, metoprolol and dilt Trend BP Adjust therapy as indicated (6) COVID-19: Code(s): U07.1 - COVID-19 Status: Acute Assessment and Plan: Currently on RA Will trend inflammatory markers no need to start remdesivir for no indication at this time Start Decadron sputum culture ordered and pending (7) Abnormal urinalysis: Code(s): R82.90 - Unspecified abnormal findings in urine Status: Acute Assessment and Plan: UA shows signs of a possible UTI Culture came back contaminated Trend labs Ceftriaxone continued (8) Hypomagnesemia: Code(s): E83.42 - Hypomagnesemia Status: Acute Assessment and Plan: Mg 2.1 Trend labs Labs in the am (9) Hypokalemia: Code(s): E87.6 - Hypokalemia Status: Acute Assessment and Plan: K is 4.3 Trend labs Labs in the am (10) Transaminitis: Code(s): R74.01 - Elevation of levels of liver transaminase levels Status: Acute Assessment and Plan: AST/ALT 54/61 Probably related to COVID Trend labs Time Spent With Patient Time with patient: Greater than 35 minutes Subjective Date/time seen: 06/18/21 1000 Interval history: Date/Time: 06/14/21 00:43 Narrative: This is a 76-year-old female with past medical history significant for stroke, atrial fibrillation, patient is a half-way resident who was brought to the emergency room after staff concerns for the patient's altered mental status she had not been her usual today and for the past several days she to was having nausea vomiting and diarrhea and had a low pulse ox EMS was called
[2021-06-18] MEDS: ATORVASTATIN 10 MG TABLET PO (10:21)
[2021-06-18] MEDS: DEXAMETHASONE 2 MG TABLET 6 MG PO (10:21)
[2021-06-18] MEDS: CAPTOPRIL (CAPOTEN) 25 MG TABLET 100 MG PO ×2 (10:21→20:54)
[2021-06-18] MEDS: APIXABAN 5 MG TABLET PO ×2 (10:21→16:52)
[2021-06-18] MEDS: METOPROLOL TARTRATE 50 MG TAB 150 MG PO ×2 (10:22→20:53)
--- NOTE | 2021-06-18 12:08 | PM.PNCARD ---
Progress Note: A&P Assessment and Plan (1) Atrial fibrillation: Qualifiers: Atrial fibrillation type: unspecified Qualified Code(s): I48.91 - Unspecified atrial fibrillation Code(s): I48.91 - Unspecified atrial fibrillation Status: Acute Assessment and Plan: Longstanding history of persistent atrial fibrillation with rapid ventricular response while in the hospital. 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 She had been cleared to resume systemic anticoagulation with Eliquis. Currently has reasonable heart rate control on metoprolol tartrate 150 mg twice daily and unusual regimen of diltiazem 60 mg p.o. Q 8 hours. No bradycardia or hypotension noted. (2) Hypomagnesemia: Code(s): E83.42 - Hypomagnesemia Status: Acute Assessment and Plan: Repleted. Continue to monitor. 2.1 this morning. (3) Hypokalemia: Code(s): E87.6 - Hypokalemia Status: Acute Assessment and Plan: Electrolytes repleted. Continue to monitor very closely. (4) Lab test positive for detection of COVID-19 virus: Code(s): U07.1 - COVID-19 Status: Acute Assessment and Plan: COVID PCR positive. She remains in isolation. Fortunately he is doing well, not requiring oxygen. (5) Hypertension: Code(s): I10 - Essential (primary) hypertension Status: Acute Assessment and Plan: Blood pressure remains high despite captopril, metoprolol and diltiazem. Will see her response to the higher dose diltiazem. (6) Altered mental status: Code(s): R41.82 - Altered mental status, unspecified Status: Acute Assessment and Plan: Patient presented due to altered mental status improved since admission with IV hydration. Urinalysis concerning for possible UTI. She remains on IV ceftriaxone. Patient is also COVID positive. (7) EDIN (acute kidney injury): Code(s): N17.9 - Acute kidney failure, unspecified Status: Acute Assessment and Plan: Improved with IV hydration. (8) Carotid arterial disease: Code(s): I77.9 - Disorder of arteries and arterioles, unspecified Status: Acute Assessment and Plan: History of high-grade carotid stenosis followed by Dr. Figueroa a vascular surgery as an outpatient. Subjective Date/time seen: 12/18/21 12:08 Follow-up for longstanding persistent atrial fibrillation with rapid ventricular response in the setting of COVID pneumonia 06/17/2021 Patient confused at times. Denies chest pain or significant shortness of breath. Indicating she wants to go home. Heart rate better controlled on diltiazem 5 milligrams/hour. Denies palpitations or dizziness. Continued metoprolol 150 mg b.i.d., and changed diltiazem drip to: Diltiazem 60 mg q.8 hours Date of service 06/18/2021: Patient denies any chest pain or shortness of breath. Telemetry shows persistent AFib heart rate 70-120s. Blood pressure remains elevated. Remains on room air O2. Echo yesterday showed normal LV function, EF 65-70%., moderate mitral and tricuspid regurgitation Review of Systems Review of Systems: All systems reviewed & are unremarkable except as noted in HPI and below ENT: Denies epistaxis Cardiovascular: Cardiovascular: Denies chest pain and Denies pedal edema Respiratory: Respiratory: Reports cough and Denies dyspnea Gastrointestinal: Gastrointestinal: Denies abdominal pain Genitourinary: Genitourinary: Denies hematuria Musculoskeletal: Musculoskeletal: Denies no additional musculoskeletal complaints Neurologic: Reports confusion Comments: Deaf in right ear very hard of hearing on the left side Psychiatric: Psychiatric: Reports confusion Exam Const: General: comfortable and no acute distress HENMT: General nose exam: no epistaxis Eyes: EOM: EOMs intact bila
[2021-06-18] MEDS: hydrALAZINE HCL 20 MG/ML VIAL 10 MG IV PUSH (14:26)
[2021-06-18] MEDS: MELATONIN 3 MG TABLET PO (20:53)
[2021-06-19] VITALS (12 sets, daily range): BP systolic 148–173; BP diastolic 89–99; PULSE 60–109; RESP 16–22; TEMP 36.1–37.1; O2SAT 98–99
[2021-06-19 05:40] LABS: Basophils Percent Auto 0.1 % (0.2-1.2); Hematocrit 45.9 % (37.0-47.0); Hemoglobin 15.3 g/dL (12.0-15.0); Immature Granulocyte Absolute 0.07 K/mm3 (0.00-0.031); Immature Granulocyte Percent A 0.7 % (0-0.5); Lymphocytes Absolute Auto 0.65 K/mm3 (0.9-3.2); Lymphocytes Percent Auto 6.5 % (18.3-44.2); Mean Corpuscular HGB Conc 33.3 g/dl (32-36); Mean Corpuscular Hemoglobin 29.4 pg (26-34); Mean Corpuscular Volume 88.1 fl (80-100); Mean Platelet Volume 11.3 fl (7.4-10.4); Monocytes Absolute Auto 0.4 K/mm3 (0.1-0.6); Monocytes Percent Auto 3.9 % (2.6-8.5); Neutrophils Absolute Auto 8.9 K/mm3 (1.3-6.7); Neutrophils Percent Auto 88.8 % (45.5-73.1); Platelet Count Result 272 k/mm3 (150-375); Red Blood Count 5.21 M/mm3 (4.2-5.4); Red Cell Distribution Width 13.6 % (11.5-14.5)
[2021-06-19 05:51] LABS: D Dimer 0.46 ug/mL (<0.48)
[2021-06-19 05:55] LABS: Alanine Aminotransferase 77 U/L (4-35); Alkaline Phosphatase 96 U/L (38-126); Anion Gap 6 mmol/L (8-16); Aspartate Amino Transferase 64 U/L (14-36); Bilirubin,Total 0.7 mg/dL (0.2-1.3); Blood Urea Nitrogen 40 mg/dL (7-17); CRP < 0.5 mg/dL (<1.0); Calcium 9.2 mg/dL (8.4-10.2); Carbon Dioxide 27 mmol/L (22-30); Chloride 100 mmol/L (98-107); Estimated CRCL calculation 28 ml/min; Estimated Glomerular Filt Rate 48; Glucose 139 mg/dL (65-110); Lactate Dehydrogenase 698 U/L (313-618); Magnesium 2.2 mg/dL (1.6-2.3); Potassium 4.8 mmol/L (3.4-5.0); Sodium 133 mmol/L (137-145)
[2021-06-19] MEDS: dilTIAZem HCL 60 MG TABLET PO ×2 (05:55→13:19)
--- NOTE | 2021-06-19 06:30 | P.DS_ITS ---
DS: Admitting Diagnosis Discharge Date Date of service 06/19/2021 at 6:30 a.m. Admitting Diagnosis metabolic encephalopathy /EDIN/ AFib RVR DS: Discharge Diagnosis Discharge Diagnosis (1) Acute metabolic encephalopathy: Code(s): G93.41 - Metabolic encephalopathy Status: Acute Assessment and Plan: * Could be related to TBI or possible UTI * Patient seems alert but rowdy today * Wonder if a part of this is not do to her [place] * Head ct shows a 7mm hyperdense mass in the right cerebellum, and old strokes * Brain MRI with and without contrast Was unable to be performed due to patient's claustrophobia * Do not think it is a stroke (2) EDIN (acute kidney injury): Code(s): N17.9 - Acute kidney failure, unspecified Status: Acute Assessment and Plan: * Likely to be pre renal azotemia * Will send urine lytes * Renal ultrasound showed 7.4 cm left renal cyst. Otherwise normal kidneys without hydronephrosis. * Trend labs * FeNa score is 0.5 indicating prerenal etiology * BUN/Cr are trending back up currently 40/1.10 (3) TBI (traumatic brain injury): Qualifiers: Encounter type: subsequent encounter Loss of consciousness presence/duration: with LOC of unspecified duration Qualified Code(s): S06.9X9D - Unspecified intracranial injury with loss of consciousness of unspecified duration, subsequent encounter Code(s): S06.9X9A - Unspecified intracranial injury with loss of consciousness of unspecified duration, initial encounter Status: Acute Assessment and Plan: * Unchanged * Continue trazodone (4) Atrial fibrillation: Qualifiers: Atrial fibrillation type: unspecified Qualified Code(s): I48.91 - Unspecified atrial fibrillation Code(s): I48.91 - Unspecified atrial fibrillation Status: Acute Assessment and Plan: * Telemonitor indicated afib * HR is uncontrolled * Cards consult thank you for your help * Will move out of IMU since patient has been off cardizem for greater than 24 hours * Metoprolol increased 150mg PO Q12h ANGELITO * Repeat Echo, EF 65-70% with a left ventricle diastolic function is indeterminate * Change cardizem to PO * Eliquis at home continued * Continue to monitor (5) Hypertension: Code(s): I10 - Essential (primary) hypertension Status: Acute Assessment and Plan: * BP stable 173/97 * Continue home captopril, metoprolol and dilt * Trend BP * Adjust therapy as indicated (6) COVID-19: Code(s): U07.1 - COVID-19 Status: Acute Assessment and Plan: * Currently on RA * Will trend inflammatory markers * no need to start remdesivir for no indication at this time * Start Decadron * sputum culture ordered and pending (7) Abnormal urinalysis: Code(s): R82.90 - Unspecified abnormal findings in urine Status: Acute Assessment and Plan: * UA shows signs of a possible UTI * Culture came back contaminated * Trend labs * Ceftriaxone continued (8) Hypomagnesemia: Code(s): E83.42 - Hypomagnesemia Status: Acute Assessment and Plan: * Mg 2.2 * Trend labs * Labs in the am (9) Hypokalemia: Code(s): E87.6 - Hypokalemia Status: Acute Assessment and Plan: * K is 4.8 * Trend labs * Labs in the a
--- NOTE | 2021-06-19 06:30 | PM.DS ---
DS: Admitting Diagnosis Discharge Date Date of service 06/19/2021 at 6:30 a.m. Admitting Diagnosis metabolic encephalopathy /EDIN/ AFib RVR DS: Discharge Diagnosis Discharge Diagnosis (1) Acute metabolic encephalopathy: Code(s): G93.41 - Metabolic encephalopathy Status: Acute Assessment and Plan: Could be related to TBI or possible UTI Patient seems alert but beka today Wonder if a part of this is not do to her [place] Head ct shows a 7mm hyperdense mass in the right cerebellum, and old strokes Brain MRI with and without contrast Was unable to be performed due to patient's claustrophobia Do not think it is a stroke (2) EDIN (acute kidney injury): Code(s): N17.9 - Acute kidney failure, unspecified Status: Acute Assessment and Plan: Likely to be pre renal azotemia Will send urine lytes Renal ultrasound showed 7.4 cm left renal cyst. Otherwise normal kidneys without hydronephrosis. Trend labs FeNa score is 0.5 indicating prerenal etiology BUN/Cr are trending back up currently 40/1.10 (3) TBI (traumatic brain injury): Qualifiers: Encounter type: subsequent encounter Loss of consciousness presence/duration: with LOC of unspecified duration Qualified Code(s): S06.9X9D - Unspecified intracranial injury with loss of consciousness of unspecified duration, subsequent encounter Code(s): S06.9X9A - Unspecified intracranial injury with loss of consciousness of unspecified duration, initial encounter Status: Acute Assessment and Plan: Unchanged Continue trazodone (4) Atrial fibrillation: Qualifiers: Atrial fibrillation type: unspecified Qualified Code(s): I48.91 - Unspecified atrial fibrillation Code(s): I48.91 - Unspecified atrial fibrillation Status: Acute Assessment and Plan: Telemonitor indicated afib HR is uncontrolled Cards consult thank you for your help Will move out of IMU since patient has been off cardizem for greater than 24 hours Metoprolol increased 150mg PO Q12h ANGELITO Repeat Echo, EF 65-70% with a left ventricle diastolic function is indeterminate Change cardizem to PO Eliquis at home continued Continue to monitor (5) Hypertension: Code(s): I10 - Essential (primary) hypertension Status: Acute Assessment and Plan: BP stable 173/97 Continue home captopril, metoprolol and dilt Trend BP Adjust therapy as indicated (6) COVID-19: Code(s): U07.1 - COVID-19 Status: Acute Assessment and Plan: Currently on RA Will trend inflammatory markers no need to start remdesivir for no indication at this time Start Decadron sputum culture ordered and pending (7) Abnormal urinalysis: Code(s): R82.90 - Unspecified abnormal findings in urine Status: Acute Assessment and Plan: UA shows signs of a possible UTI Culture came back contaminated Trend labs Ceftriaxone continued (8) Hypomagnesemia: Code(s): E83.42 - Hypomagnesemia Status: Acute Assessment and Plan: Mg 2.2 Trend labs Labs in the am (9) Hypokalemia: Code(s): E87.6 - Hypokalemia Status: Acute Assessment and Plan: K is 4.8 Trend labs Labs in the am (10) Transaminitis: Code(s): R74.01 - Elevation of levels of liver transaminase levels Status: Acute Assessment and Plan: AST/ALT 64/77 Probably related to COVID Trend labs DS: Summary Hospital Course Hospital Course: Patient is a 76 year old female with a past medical history of TBI, Afib, depression, CVA who came to the emergency room for evaluation for several days of nausea, vomiting, and diarrhea. patient was treated with IV fluids for rehydration. Was also noted that her BUN creatinine were elevated has returned back to baseline with IV fluids. Patient was
[2021-06-19] MEDS: DEXAMETHASONE 2 MG TABLET 6 MG PO (09:48)
[2021-06-19] MEDS: APIXABAN 5 MG TABLET PO (09:48)
[2021-06-19] MEDS: CAPTOPRIL (CAPOTEN) 25 MG TABLET 100 MG PO (09:48)
[2021-06-19] MEDS: ATORVASTATIN 10 MG TABLET PO (09:48)
[2021-06-19] MEDS: METOPROLOL TARTRATE 50 MG TAB 150 MG PO (09:48)
--- NOTE | 2021-06-19 11:21 | PM.PNCARD ---
Progress Note: A&P Assessment and Plan (1) Atrial fibrillation: Qualifiers: Atrial fibrillation type: unspecified Qualified Code(s): I48.91 - Unspecified atrial fibrillation Code(s): I48.91 - Unspecified atrial fibrillation Status: Acute Assessment and Plan: Longstanding history of persistent atrial fibrillation with rapid ventricular response while in the hospital. 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 She had been cleared to resume systemic anticoagulation with Eliquis. Currently has reasonable heart rate control on increased metoprolol tartrate 150 mg twice daily and home regimen of diltiazem 60 mg p.o. Q 8 hours. No bradycardia or hypotension noted. Hold metoprolol if HR < 60 OK for discharge. (2) Hypomagnesemia: Code(s): E83.42 - Hypomagnesemia Status: Acute Assessment and Plan: Repleted. (3) Hypokalemia: Code(s): E87.6 - Hypokalemia Status: Acute Assessment and Plan: Electrolytes repleted. (4) Lab test positive for detection of COVID-19 virus: Code(s): U07.1 - COVID-19 Status: Acute Assessment and Plan: COVID PCR positive. She remains in isolation. Fortunately he is doing well, not requiring oxygen. (5) Hypertension: Code(s): I10 - Essential (primary) hypertension Status: Acute Assessment and Plan: Blood pressure remains high despite captopril, metoprolol and diltiazem. Agree w/ adding lisinopril, perhaps 5 mg daily. (6) Altered mental status: Code(s): R41.82 - Altered mental status, unspecified Status: Acute Assessment and Plan: Patient presented due to altered mental status improved since admission with IV hydration. Urinalysis concerning for possible UTI. She remains on IV ceftriaxone. Patient is also COVID positive. (7) EDIN (acute kidney injury): Code(s): N17.9 - Acute kidney failure, unspecified Status: Acute Assessment and Plan: Improved with IV hydration. (8) Carotid arterial disease: Code(s): I77.9 - Disorder of arteries and arterioles, unspecified Status: Acute Assessment and Plan: History of high-grade carotid stenosis followed by Dr. Figueroa a vascular surgery as an outpatient. Subjective Date/time seen: 06/19/21 11:21 Interval history: Follow-up for longstanding persistent atrial fibrillation with rapid ventricular response in the setting of COVID pneumonia 06/17/2021 Patient confused at times. Denies chest pain or significant shortness of breath. Indicating she wants to go home. Heart rate better controlled on diltiazem 5 milligrams/hour. Denies palpitations or dizziness. Continued metoprolol 150 mg b.i.d., and changed diltiazem drip to: Diltiazem 60 mg q.8 hours Date of service 06/18/2021: Patient denies any chest pain or shortness of breath. Telemetry shows persistent AFib heart rate 70-120s. Blood pressure remains elevated. Remains on room air O2. Echo yesterday showed normal LV function, EF 65-70%., moderate mitral and tricuspid regurgitation Date of Service 06/19/2021: Doing well, no chest pain or shortness of breath. Mild cough and congestion. Telemetry shows persistent atrial fibrillation, heart rate 70-100. Remains on room air. Blood pressure remains high, 146-173/87-115. Review of Systems Constitutional: Constitutional: Denies fatigue and Denies weakness ENT: Reports system reviewed and no additional complaints, except as documented and Denies Normal hearing present Cardiovascular: Cardiovascular: Denies chest pain and Denies pedal edema Respiratory: Respiratory: Reports chest congestion, Reports cough and Denies dyspnea Gastrointestinal: Gastrointestinal: Denies abdominal pain Musculoskeletal: Musculoskeletal: Reports no additional musculoskeletal com
[2021-06-19] MEDS: lisinopriL 5 MG TABLET PO (13:19)
== END 2021-06-19 17:05 | DRG 177 ==
LOC: ANHED 06-14 00:35 → ANH2MED 06-14 02:29 → ANH3MEDSUR 06-14 04:17 → ANHIMU 06-14 19:43
PROVIDERS: Admitting Provider Internal Medicine; Emergency Provider Emergency Medicine; PCP Internal Medicine; Visit Provider Nurse Practitioner
DX: U07.1 COVID-19 (principal); G93.41 Metabolic encephalopathy; N17.9 Acute kidney failure, unspecified; I48.11 Longstanding persistent atrial fibrillation; E86.0 Dehydration; R11.2 Nausea with vomiting, unspecified; R19.7 Diarrhea, unspecified; F40.240 Claustrophobia; I65.29 Occlusion and stenosis of unspecified carotid artery; R82.90 Unspecified abnormal findings in urine; E83.42 Hypomagnesemia; E87.6 Hypokalemia; R74.01 Elevation of levels of liver transaminase levels; Z86.73 Personal history of transient ischemic attack (TIA), and cerebral infarction without residual deficits; S06.9X9D Unspecified intracranial injury with loss of consciousness of unspecified duration, subsequent encounter; W19.XXXD Unspecified fall, subsequent encounter; Z79.01 Long term (current) use of anticoagulants; Z79.899 Other long term (current) drug therapy; Z87.891 Personal history of nicotine dependence
CPT/HCPCS: 36415; 70450; 71045; 76775; 78580; 80053; 81001; 82570; 82728; 82948; 83605; 83615; 83735; 84300; 85025; 85380; 86140; 87086; 87088; 93005; 93306; 96361; 96365; 96366; 96367; 96372; 96374; 96375; 96376; 97161; 97165; 99285; A9270; A9540; C9803; G0378; J0360; J0696; J1630; J3475; J3480; J7030; J7040; J8540; U0003; U0005

== ENCOUNTER 2021-07-09 21:04 | Emergency (ER) | payer MEDICARE, SELFPAY ==
--- NOTE | ~2021-07-09 | CT_ITS ---
EXAMINATION: CT brain wo con DATE: 07/09/2021 22:05 INDICATION: Confusion. Head injury. TECHNIQUE: Computed tomography (CT) of the head was performed without intravenous contrast. The dose- length product was 605.33 mGy-cm. Automated exposure control and iterative reconstruction technique were employed. COMPARISON: CT dated 06/15/2021 FINDINGS: There is a subacute hemorrhage medial right cerebellum measuring 6 x 5 mm. Generalized atro phy. There are scattered severe periventricular and subcortical white matter changes, most likely rel ated to small vessel ischemic disease (microangiopathy). Chronic left frontal lobe infarction. Chroni c bilateral lacunar infarctions. Chronic lacunar infarction of the gaurav. Chronic left cerebellar infa rction. IMPRESSION: 1. Subacute right cerebellar hemorrhage. 2: Chronic left frontal lobe, bilateral lacunar, gaurav and left cerebellar infarctions. 3: Chronic age-related findings. Reviewed, dictated and finalized at location A. HET BEADER IMPRESSION: 1. Subacute right cerebellar hemorrhage. 2: Chronic left frontal lobe, bilateral lacunar, gaurav and left cerebellar infa rctions. 3: Chronic age-related findings.
--- NOTE | ~2021-07-09 | XR_ITS ---
[[id number] ] INDICATION: Right rib pain after fall TECHNIQUE: Frontal projection of the upper right ribs, frontal projection of the lower right ribs, ob lique projection of all the right ribs, frontal inspiratory chest x-ray for interpretation. FINDINGS: There are acute right seventh, eighth and ninth rib fractures. There are healed right fourt h and fifth rib fractures. There is patchy bilateral airspace disease, compatible with pneumonia. The re is advanced multilevel spondylosis with scoliosis. There is atherosclerosis. There are no soft tis rob abnormality seen. The lungs are clear. IMPRESSION: 1: Patchy bilateral airspace disease, compatible with pneumonia.. 2:Acute right seventh, eighth and ninth rib fractures. Reviewed, dictated and finalized at location A. OLEUM REFINERY OPERATOR
--- NOTE | ~2021-07-09 | XR_ITS ---
XR femur LT min 2V 07/09/2021 21:59 INDICATION: Left leg pain after fall PROCEDURE: 2 views left femur COMPARISON: No prior studies for comparison. FINDINGS: Fracture, dislocation or subluxation is not identified. The soft tissues appear within norm al limits. No foreign bodies are identified. IMPRESSION: 1: NO ACUTE BONE OR JOINT ABNORMALITY IDENTIFIED. Reviewed, dictated and finalized at location A. OBIOLOGY TECHNICIAN
[2021-07-09 21:04] VITALS: BP 178/99; PULSE 97; RESP 19; TEMP 36.4; O2SAT 99
[2021-07-09 21:22] VITALS: BP 174/100; PULSE 108; RESP 20; O2SAT 95
--- NOTE | 2021-07-09 21:37 | ED.FALL ---
HPI - Fall General Chief Complaint: Fall Stated Complaint: GLF 1400, RT FLANK, LF LEG SWELLING Time Seen by Provider: 07/09/21 21:28 Source: patient Mode of arrival: ambulatory Limitations: no limitations History of Present Illness HPI Narrative: Patient is a 76-year-old female complaining of right rib pain and left thigh pain after she tripped over her small dog. Patient states that her pain is an 8 out of 10, dull, worse with palpation and movement. Patient denies any head, neck, back or any other extremity pain/injury. Patient denies any loss of consciousness. Related Data Home Medications Medication Instructions Recorded Confirmed acetaminophen 325 mg tablet 325 mg PO Q6H PRN 12/31/20 06/14/21 trazodone 100 mg tablet 50 mg PO QHS PRN tablet 02/09/21 06/14/21 Eliquis 5 mg PO BID 06/14/21 06/14/21 Allergies Allergy/AdvReac Type Severity Reaction Status Date / Time No Known Allergies Allergy Unknown Verified 06/14/21 05:30 Review of Systems Review of Systems: All systems reviewed & are unremarkable except as noted in HPI and below Constitutional: Constitutional: Denies body ache(s), Denies chills, Denies excessive sweating, Denies fatigue, Denies fever(s), Denies headache(s), Denies lethargy, Denies malaise, Denies weakness and Denies weight loss Eyes: Eyes: Denies blurry vision, Denies change in vision and Denies loss of vision ENT: Denies dizziness, Denies ear discharge, Denies headache(s), Denies lip swelling, Denies epistaxis, Denies nasal congestion, Denies neck pain, Denies throat swelling and Denies tongue swelling Cardiovascular: Cardiovascular: Denies chest pain, Denies chest pain at rest, Denies chest pain with activity, Denies diaphoresis, Denies rapid heart rate, Denies edema, Denies irregular heart rhythm, Denies lightheadedness, Denies palpitations, Denies dyspnea and Denies dyspnea on exertion Respiratory: Respiratory: Denies chest congestion, Denies cough, Denies hemoptysis, Denies dyspnea and Denies dyspnea on exertion Gastrointestinal: Gastrointestinal: Denies abdominal pain, Denies melena, Denies hematochezia, Denies diarrhea, Denies nausea, Denies vomiting and Denies hematemesis Musculoskeletal: Musculoskeletal: Denies deformity, Denies joint swelling, Denies neck pain and Denies numbness Neurologic: Denies Abnormal speech present, Denies abnormal gait, Denies confusion, Denies dizziness, Denies headache(s), Denies focal weakness, Denies loss of vision, Denies numbness, Denies Other visual disturbances, Denies Sensory deficit (Neuro) and Denies weakness Psychiatric: Psychiatric: Denies confusion, Denies depression, Denies auditory hallucinations, Denies homicidal ideation and Denies suicidal ideation Endocrine: Endocrine: Denies cold intolerance, Denies excessive sweating, Denies fatigue, Denies heat intolerance and Denies palpitations Hematologic/Lymphatic: Hematologic/Lymphatic: Denies easy bleeding and Denies easy bruising Allergic/Immunologic: Allergic/Immunologic: Denies lip swelling, Denies throat swelling and Denies tongue swelling PMFSH Past Medical History Medical History Anxiety Atrial fibrillation Depression Hepatitis Hypertension Stroke Surgical History Surgical History History of angioplasty Family History Family History Other No acute medical problems Social History Social History Smoking status: Former smoker Tobacco type: cigarettes Alcohol intake: current Drinks per week: 2 Substance use: never Substance use type: does not use Gender identity (if verbalized by the patient): Female Spiritual care concerns: No Exam Const: General: cooperative, healthy appearing, comfortable, no acute distress, well developed, alert and awake;
--- NOTE | 2021-07-09 21:42 | PC.NURSE ---
Patient taken to xray via stretcher.
[2021-07-09] MEDS: HYDROcodone/acetaminophen (*CRX) 5-325 MG TABLET 1 TAB PO (22:07)
--- NOTE | 2021-07-09 23:08 | PC.NURSE ---
Patient went into Afib with RVR, EKG and orders obtained.
--- NOTE | 2021-07-09 23:09 | ECG_ITS ---
Measurements Intervals [place] Rate: 129 P: [place]: 0 QRS: 129 QRSD: 121 T: -8 QT: 318 QTc: 466 Interpretive Statements ATRIAL FIBRILLATION WITH RAPID VENTRICULAR RESPONSE RIGHT AXIS DEVIATION RIGHT BUNDLE BRANCH BLOCK CANNOT RULE OUT SEPTAL INFARCT, AGE INDETERMINATE CONSIDER HIGH LATERAL INFARCT, AGE INDETERMINATE BASELINE ARTIFACT- I, III, AVR, AVL, AVF ABNORMAL ECG Electronically Signed On 07-10-2021 8:32:36 MUSICAL INSTRUMENT MAKER by Flaco Castañeda D.O.
[2021-07-09] MEDS: HYDROmorphone HCL INJ (*CRX) 1 MG/ML SYR 0.5 MG IV PUSH (23:30)
[2021-07-09] MEDS: ONDANSETRON INJ 4 MG/2 ML VIAL IV PUSH (23:30)
[2021-07-09] MEDS: dilTIAZem HCl INJ 25 MG/5 ML VIAL 20 MG IV PUSH (23:30)
[2021-07-09 23:44] LABS: Basophils Percent Auto 0.2 % (0.2-1.2); Eosinophils Percent Auto 0.2 % (0-4.4); Hematocrit 36.5 % (37.0-47.0); Hemoglobin 11.8 g/dL (12.0-15.0); Immature Granulocyte Absolute 0.05 K/mm3 (0.00-0.031); Immature Granulocyte Percent A 0.4 % (0-0.5); Lymphocytes Absolute Auto 1.08 K/mm3 (0.9-3.2); Lymphocytes Percent Auto 8.6 % (18.3-44.2); Mean Corpuscular HGB Conc 32.3 g/dl (32-36); Mean Corpuscular Hemoglobin 30.1 pg (26-34); Mean Corpuscular Volume 93.1 fl (80-100); Mean Platelet Volume 10.6 fl (7.4-10.4); Monocytes Percent Auto 7.6 % (2.6-8.5); Neutrophils Absolute Auto 10.5 K/mm3 (1.3-6.7); Platelet Count Result 195 k/mm3 (150-375); Red Blood Count 3.92 M/mm3 (4.2-5.4); Red Cell Distribution Width 14.8 % (11.5-14.5); White Blood Count 12.6 K/mm3 (4.5-10.0)
[2021-07-09 23:49] VITALS: PULSE 97; RESP 28; O2SAT 93
[2021-07-09] MEDS: PHYTONADIONE ADULT INJ 10 MG in DEXTROSE 5% IN WATER 50 ML 100 MG IVPB (23:53)
[2021-07-09 23:54] LABS: INR 1.7; Prothrombin Time 19.3 Seconds (11.1-14.7)
[2021-07-09 23:55] LABS: Partial Thromboplastin Time 38.8 SECONDS (22.3-36.8)
[2021-07-09 23:58] LABS: Anion Gap 6 mmol/L (8-16); Blood Urea Nitrogen 22 mg/dL (7-17); Calcium 9.2 mg/dL (8.4-10.2); Carbon Dioxide 25 mmol/L (22-30); Chloride 107 mmol/L (98-107); Estimated Glomerular Filt Rate 48; Glucose 117 mg/dL (65-110); Potassium 4.5 mmol/L (3.4-5.0); Sodium 138 mmol/L (137-145)
[2021-07-10] VITALS (7 sets, daily range): BP systolic 147–171; BP diastolic 91–138; PULSE 89–105; RESP 12–27; TEMP 37.1; O2SAT 92–98
[2021-07-10] MEDS: HUMAN PROTHROMBIN COMPLEX(PCC) 2,000 UNITS in PREMIXIV 0 ML 320 UNITS IV CONT (00:25)
== END 2021-07-10 01:42 | disposition short-term general hospital (02) ==
PROVIDERS: Emergency Provider Emergency Medicine; PCP Internal Medicine
DX: S06.370A Contusion, laceration, and hemorrhage of cerebellum without loss of consciousness, initial encounter (principal); S22.41XA Multiple fractures of ribs, right side, initial encounter for closed fracture; I48.91 Unspecified atrial fibrillation; Z79.01 Long term (current) use of anticoagulants; I10 Essential (primary) hypertension; Z86.73 Personal history of transient ischemic attack (TIA), and cerebral infarction without residual deficits; Z87.891 Personal history of nicotine dependence; Z98.62 Peripheral vascular angioplasty status; I45.10 Unspecified right bundle-branch block; R94.31 Abnormal electrocardiogram [ECG] [EKG]; R91.8 Other nonspecific abnormal finding of lung field; W01.0XXA Fall on same level from slipping, tripping and stumbling without subsequent striking against object, initial encounter
CPT/HCPCS: 36415; 70450; 71101; 73552; 80048; 85025; 85610; 85730; 93005; 96365; 96375; 99291; A9270; J1170; J2405; J3430; J7168

== ENCOUNTER 2021-08-15 13:25 | Outpatient (CLI) | payer MEDICARE, SELFPAY ==
[2021-08-15 14:21] LABS: Basophils Absolute Auto 0.1 K/mm3 (0.0-0.1); Basophils Percent Auto 0.5 % (0.2-1.2); Eosinophils Absolute Auto 0.1 K/mm3 (0-0.3); Eosinophils Percent Auto 0.6 % (0-4.4); Hematocrit 39.7 % (37.0-47.0); Immature Granulocyte Absolute 0.08 K/mm3 (0.00-0.031); Immature Granulocyte Percent A 0.7 % (0-0.5); Lymphocytes Absolute Auto 1.33 K/mm3 (0.9-3.2); Mean Corpuscular HGB Conc 32.7 g/dl (32-36); Mean Corpuscular Hemoglobin 31.3 pg (26-34); Mean Corpuscular Volume 95.7 fl (80-100); Mean Platelet Volume 10.4 fl (7.4-10.4); Monocytes Absolute Auto 1.1 K/mm3 (0.1-0.6); Monocytes Percent Auto 10.3 % (2.6-8.5); Neutrophils Absolute Auto 8.4 K/mm3 (1.3-6.7); Neutrophils Percent Auto 75.9 % (45.5-73.1); Platelet Count Result 362 k/mm3 (150-375); Red Blood Count 4.15 M/mm3 (4.2-5.4); Red Cell Distribution Width 15.1 % (11.5-14.5); White Blood Count 11.1 K/mm3 (4.5-10.0)
[2021-08-15 14:38] LABS: Anion Gap 7 mmol/L (8-16); Blood Urea Nitrogen 20 mg/dL (7-17); Carbon Dioxide 28 mmol/L (22-30); Chloride 104 mmol/L (98-107); Estimated Glomerular Filt Rate 31; Glucose 110 mg/dL (65-110); NT Pro B Type Natriuretic Pept 13100 pg/mL (5-100); Potassium 4.1 mmol/L (3.4-5.0); Sodium 139 mmol/L (137-145)
[2021-08-15 14:54] LABS: Digoxin 2.1 ng/mL (0.8-2.0)
== END 2021-08-15 13:26 | disposition home or self-care (01) ==
LOC: ANHLAB 13:31
PROVIDERS: PCP Internal Medicine; Visit Provider Nurse Practitioner Adult Health
DX: R60.0 Localized edema (principal); R06.00 Dyspnea, unspecified; I48.11 Longstanding persistent atrial fibrillation
CPT/HCPCS: 36415; 80048; 80162; 83880; 85025

== ENCOUNTER 2021-09-20 09:14 | Outpatient (CLI) | payer MEDICARE, SELFPAY ==
[2021-09-20 10:09] LABS: INR 1.1; Prothrombin Time 14.2 Seconds (11.1-14.7)
== END 2021-09-20 09:15 | disposition home or self-care (01) ==
PROVIDERS: PCP Internal Medicine; Visit Provider Internal Medicine
DX: I61.4 Nontraumatic intracerebral hemorrhage in cerebellum (principal)
CPT/HCPCS: 36415; 85610

== ENCOUNTER 2021-09-21 04:19 | Emergency (ER) | payer MEDICARE, SELFPAY ==
--- NOTE | ~2021-09-21 | XR_ITS ---
XR hip LT 2V w AP pelvis 09/21/2021 05:07 Indication: Left hip pain Procedure: AP pelvis and 2 views left hip Comparison: 07/09/2021 Findings: No fracture, subluxation or dislocation. Pelvic rings are intact. No soft tissue abnormalit y. No foreign bodies. Impression: 1: No acute fracture. Reviewed, dictated and finalized at location A. Impression: 1: No acute fracture.
[2021-09-21 04:10] VITALS: BP 144/70; PULSE 115; RESP 26; TEMP 36.6; O2SAT 97
--- NOTE | 2021-09-21 04:33 | ED.FALL ---
HPI - Fall General Chief Complaint: Fall Stated Complaint: 2100 glf left leg pain Time Seen by Provider: 09/21/21 04:23 Source: patient Mode of arrival: EMS Limitations: no limitations History of Present Illness HPI Narrative: Patient is a 76-year-old female complaining of left hip pain, 8 out of 10, dull, worse with movement and palpation after she fell tonight. She denies any head, neck, chest, abdomen or back or any other extremity pain/injury. Patient denies any symptoms prior to the fall. Related Data Home Medications Medication Instructions Recorded Confirmed acetaminophen 325 mg tablet 325 mg PO Q6H PRN 12/31/20 09/20/21 DM 10 mg-acetaminophen 325 mg-GG 2 cap PO Q6H PRN cap 08/18/21 09/20/21 200 mg capsule aspirin 81 mg tablet,delayed 81 mg PO DAILY 08/18/21 09/20/21 release cyclobenzaprine 5 mg tablet 5 mg PO TID PRN 08/18/21 09/20/21 dextromethorphan-guaifenesin 10 10 ml PO Q4H PRN ml 08/18/21 09/20/21 mg-200 mg/5 mL oral liquid furosemide 20 mg tablet 20 mg PO QAM tablet 08/18/21 09/20/21 lidocaine 4 % topical patch 1 patch TOPICAL DAILY PRN 08/18/21 09/20/21 oxybutynin chloride 5 mg tablet 10 mg PO DAILY tablet 08/18/21 09/20/21 sennosides 8.6 mg tablet 8.6 mg PO BID 08/18/21 09/20/21 diltiazem HCl 240 mg capsule,24 480 mg PO BID cap 08/24/21 09/20/21 hr,extended release Allergies Allergy/AdvReac Type Severity Reaction Status Date / Time No Known Allergies Allergy Unverified 09/21/21 04:17 Review of Systems Review of Systems: All systems reviewed & are unremarkable except as noted in HPI and below Constitutional: Constitutional: Denies body ache(s), Denies chills, Denies excessive sweating, Denies fatigue, Denies fever(s), Denies headache(s), Denies lethargy, Denies malaise, Denies weakness and Denies weight loss Eyes: Eyes: Denies blurry vision, Denies change in vision and Denies loss of vision ENT: Denies dizziness, Denies ear discharge, Denies headache(s), Denies lip swelling, Denies epistaxis, Denies nasal congestion, Denies neck pain, Denies throat swelling and Denies tongue swelling Cardiovascular: Cardiovascular: Denies chest pain, Denies chest pain at rest, Denies chest pain with activity, Denies diaphoresis, Denies rapid heart rate, Denies edema, Denies irregular heart rhythm, Denies lightheadedness, Denies palpitations, Denies dyspnea and Denies dyspnea on exertion Respiratory: Respiratory: Denies chest congestion, Denies cough, Denies hemoptysis, Denies dyspnea and Denies dyspnea on exertion Gastrointestinal: Gastrointestinal: Denies abdominal pain, Denies melena, Denies hematochezia, Denies diarrhea, Denies nausea, Denies vomiting and Denies hematemesis Musculoskeletal: Musculoskeletal: Denies deformity, Denies joint swelling, Denies limited range of motion, Denies neck pain and Denies numbness Neurologic: Denies Abnormal speech present, Denies confusion, Denies dizziness, Denies headache(s), Denies focal weakness, Denies loss of vision, Denies numbness, Denies Other visual disturbances, Denies Sensory deficit (Neuro) and Denies weakness Psychiatric: Psychiatric: Denies confusion, Denies depression, Denies auditory hallucinations, Denies homicidal ideation and Denies suicidal ideation Endocrine: Endocrine: Denies cold intolerance, Denies excessive sweating, Denies fatigue, Denies heat intolerance and Denies palpitations Hematologic/Lymphatic: Hematologic/Lymphatic: Denies easy bleeding and Denies easy bruising Allergic/Immunologic: Allergic/Immunologic: Denies lip swelling, Denies throat swelling and Denies tongue swelling PMFSH Past Medical History Medical History Anxiety Atrial fibrillation Depression Fractured rib After Fall 07/2021 Gait disturbance Hepatitis Hypertension Stroke Surgical History Surgical History History of angioplasty Family History Family
[2021-09-21] MEDS: traMADol HCL (*CRX) 50 MG TABLET PO (04:39)
[2021-09-21] MEDS: ACETAMINOPHEN 325 MG TABLET 650 MG PO (04:39)
--- NOTE | 2021-09-21 06:46 | PC.NURSE ---
made contact with [facility] to transfer pt back to [facility]. OLLIE [phone] (trip# [phone])
--- NOTE | 2021-09-21 07:02 | PC.NURSE ---
THis RN tried to call report to [facility]. I informed them that their patient was going back to the facility and there was no nurse to get report.
[2021-09-21 08:02] VITALS: BP 139/96; PULSE 87; RESP 16; O2SAT 98
== END 2021-09-21 08:03 ==
PROVIDERS: Emergency Provider Emergency Medicine; PCP Internal Medicine
DX: S76.012A Strain of muscle, fascia and tendon of left hip, initial encounter (principal); F41.9 Anxiety disorder, unspecified; I48.91 Unspecified atrial fibrillation; F32.9 Major depressive disorder, single episode, unspecified; I10 Essential (primary) hypertension; W19.XXXA Unspecified fall, initial encounter
CPT/HCPCS: 73502; 99283; A9270

== ENCOUNTER 2022-04-04 10:44 | Outpatient (CLI) | payer MEDICARE, SELFPAY ==
[2022-04-04 18:33] LABS: Appearance Urine Clear (Clear); Bilirubin Urine Negative (Negative); Blood Urine Negative (Negative); Color Urine Yellow (Yellow); Glucose Urine UA Negative (Negative); Ketones Urine Negative (Negative); Leukocyte Esterase Ur Trace LEU/UL (NEGATIVE); Nitrate Urine Negative (Negative); Protein Urine Negative (Negative); Specific Grav Ur 1.015 (1.001-1.035); Urobilinogen Urine 0.2 mg/dL (<2.0)
[2022-04-04 18:40] LABS: Bacteria Urine Trace /hpf; RBC Urine 0-2 /hpf (0-2); Squamous Epithelial Cell Urine Rare /hpf (Few); WBC Urine 0-3 /hpf (0-3)
[2022-04-04 18:44] LABS: Add Urine Microscopic? YES
[2022-04-04 20:12] LABS: Hepatitis C Virus Antibody Negative (Negative)
[2022-04-07 20:08] LABS: Albumin 3.9 g/dL (3.8-4.8); Alpha 1 Globulin 0.4 g/dL (0.2-0.3); Alpha 2 Globulin 0.9 g/dL (0.5-0.9); Beta 1 Globulin 0.4 g/dL (0.4-0.6); Gamma Globulin 1.2 g/dL (0.8-1.7)
[2022-04-11 23:03] LABS: Total Protein/Creatinine Ratio 91 mg/g creat (24-184)
[2022-04-14 13:47] LABS: Creatinine, Random Urine 55 mg/dL
== END 2022-04-04 10:45 | disposition home or self-care (01) ==
LOC: ANHGOSHLAB 10:48
PROVIDERS: PCP Internal Medicine; Visit Provider Internal Medicine
DX: N18.30 Chronic kidney disease, stage 3 unspecified (principal)
CPT/HCPCS: 36415; 81001; 82570; 84155; 84156; 84165; 84166; 86038; 86803

== ENCOUNTER 2022-04-11 09:17 | Outpatient (CLI) | payer MEDICARE, SELFPAY ==
--- NOTE | ~2022-04-11 | US_ITS ---
EXAMINATION: US retroperitoneal duplex ltd, US renal BI DATE: 04/11/2022 10:38 (accession [id number]), 04/11/2022 10:37 (accession [id number]) INDICATION: Stage III chronic kidney disease with hypertension TECHNIQUE: 1. Multiple grayscale and color Doppler images of the kidneys were obtained. 2. Multiple grayscale and pulsed Doppler images of the aorta and renal arteries were obtained. COMPARISON: 06/14/2021 FINDINGS: Kidneys: The right kidney measures 8.2 x 2.9 x 4.3 cm. The left kidney measures 9.9 x 5.4 by cm. Cortical thin juan j with increased cortical echogenicity in the mid to upper right kidney. A couple anechoic left re nal cysts measuring 6.8 cm 4.9 cm in maximal diameters. There is no hydronephrosis in either kidney. No stones identified. The bladder is normal. Renal arteries/vascular: The aorta peak systolic velocity is 325 cm/s. The right renal artery peak systolic velocity is 145 cm /s in the proximal segment, 49 cm/s in the mid segment, and 62 cm/s in the distal segment. The left r enal artery peak systolic velocity is 92 cm/s in the proximal segment, 75 cm/s in the mid segment, an d 116 cm/s in the distal segment. IMPRESSION: 1. Atrophy at the mid to upper pole of the right kidney. 2. No hydronephrosis in either kidney. 2. No Doppler evidence of renal artery stenosis. Reviewed, dictated and finalized at location B. IMPRESSION: 1. Atrophy at the mid to upper pole of the right kidney. 2. No hydronephrosis in either kidney. 2. No Doppler evidence of renal artery stenosis.
== END 2022-04-11 09:18 | disposition home or self-care (01) ==
PROVIDERS: PCP Internal Medicine; Visit Provider Internal Medicine
DX: I12.9 Hypertensive chronic kidney disease with stage 1 through stage 4 chronic kidney disease, or unspecified chronic kidney disease (principal); N18.32 Chronic kidney disease, stage 3b
CPT/HCPCS: 76775; 93976

== ENCOUNTER 2022-04-27 11:48 | Outpatient (CLI) | payer MEDICARE, SELFPAY ==
[2022-04-27 12:21] LABS: Albumin Level 4.1 g/dL (3.5-5.1); Anion Gap 13 mmol/L (8-16); Blood Urea Nitrogen 18 mg/dL (7-17); Calcium 8.8 mg/dL (8.4-10.2); Carbon Dioxide 24 mmol/L (22-30); Chloride 108 mmol/L (98-107); Estimated Glomerular Filt Rate 34; Glucose 92 mg/dL (65-110); Phosphorus 3.9 mg/dL (2.5-4.5); Potassium 3.9 mmol/L (3.4-5.0); Sodium 145 mmol/L (137-145)
[2022-04-27 12:26] LABS: Add Urine Microscopic? YES; Appearance Urine Cloudy (Clear); Bilirubin Urine Negative (Negative); Blood Urine Negative (Negative); Color Urine Yellow (Yellow); Glucose Urine UA Negative (Negative); Ketones Urine Negative (Negative); Leukocyte Esterase Ur Trace LEU/UL (NEGATIVE); Nitrate Urine Negative (Negative); Protein Urine Negative (Negative); Specific Grav Ur 1.016 (1.001-1.035); WBC Urine 0-3 /hpf (0-3)
[2022-04-27 12:43] LABS: Creatinine Urine 107.9 mg/dL; Total Protein Urine Random 18 mg/dL; Ur Ttl Prot Creatinine Ratio 0.17 mg/mg (0-0.20)
== END 2022-04-27 11:49 | disposition home or self-care (01) ==
LOC: ANHLAB 11:51
PROVIDERS: PCP Internal Medicine; Visit Provider Internal Medicine Nephrology
DX: N18.31 Chronic kidney disease, stage 3a (principal)
CPT/HCPCS: 36415; 80069; 81001; 82570; 84156